=== PATIENT | female | born 1935 | race Caucasian/White ===

== ENCOUNTER 2019-10-15 18:55 | Inpatient (IN) | payer MEDICARE, OTHER, SELFPAY ==
--- NOTE | 2019-10-15 19:37 | XR_ITS ---
WS: [id number] Portable AP upright chest, 10/15/2019 Clinical Data: COVID Comparison: Portable chest, 05/11/2018. Findings: No nodules, masses or effusions are seen. The heart is enlarged. Patchy opacities extend to the periphery of the left lung involving the lingula and left lower lobe. There is a patchy density at the periphery of the right lower lobe. A left internal jugular venous Port-A-Cath ends in the supe rior vena cava. The pulmonary vascularity is not increased. No pneumothorax is seen. Right diaphragm is elevated. There is a clip in the right upper quadrant from a cholecystectomy. XR/XR chest 1V portable [id number] Impression: 1. Patchy opacities in lingula and left lower lobe consistent with pneumonia. 2. Patchy peripheral opacity in right lower lobe which could also represent pne umonia. 3. Cardiomegaly.
[2019-10-15] MEDS: enoxaparin 80 mg/0.8 mL Syringe SUBCUT (20:00)
--- NOTE | 2019-10-15 20:15 | ED_ITS ---
HPI - SOB/Dyspnea General: Chief Complaint: Shortness of Breath/Dyspnea Stated Complaint: SOB Time Seen by Provider: 10/15/19 19:24 History of Present Illness: HPI Narrative: This patient is an 84-year-old female who comes in today with shortness of breath. She has a history of lung cancer and had part of her right lung removed. She was then found to have mets to her liver and has been undergoing chemotherapy for that. Her last chemo treatment was about 3 weeks ago in [place]. Her daughter, with whom she lives tested positive for COVID on October 01. The patient was also having symptoms at that time but did not want a get tested. She said she has been feeling pretty bad since then but only developed the shortness of breath in the past several days. Today she said she just could not breathe at all and so finally let her daughter bring her in. She also has a history of myasthenia gravis. She denies vomiting or diarrhea. She has been having fevers and cough. MD elicited complaint: shortness of breath and cough Pertinent past history: other (Lung cancer with liver mets, status post lobectomy, myasthenia gravis) Onset (ago): week(s) (2 or 3 weeks ago, worsening in the past 3 days) Timing: progressively worsening Severity: severe Exacerbating factors: nothing, exertion, movement, coughing, talking and deep breaths Relieving factors: oxygen and rest Associated symptoms: Reports cough, fever(s) and myalgias; Deny abdominal pain, chest pain, nausea or vomiting Treatment prior to arrival: none Review of Systems General: Reports: 10 or more systems reviewed and unremarkable except in HPI and below Const: Reports: fever(s) Eyes: Denies: change in vision ENMT: Denies: odynophagia Card: Denies: chest pain or swelling of feet/ankles Resp: Reports: dyspnea and non-productive cough; Denies: productive cough GI: Denies: abdominal pain, nausea or vomiting : Denies: flank pain or difficulty voiding Musc: Denies: neck pain or back pain Skin/Breast: Denies: rash Neuro: Denies: headache(s), numbness in extremities or weakness in extremities Sudeep/Lymph: Denies: easy bruising or easy bleeding PFS ED PFSH: Medical History (Updated 10/15/19 @ 23:49 by Caryn Leonard MD) Anxiety Chronic kidney disease, stage II (mild) DVT (deep venous thrombosis) From description this is upper extremity or subclavian. 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 Myasthenia gravis Surgical History (Updated 10/15/19 @ 23:29 by Andrzej Vidales MD) History of pneumonectomy Partial, on right Hx of cholecystectomy Family History (Updated 10/15/19 @ 23:29 by Andrzej Vidales MD) Other Cancer Social History (Updated 10/15/19 @ 23:30 by Andrzej Vidales MD) Smoking and tobacco status: never smoked Alcohol intake: never Physical Exam Const: COMMON NORMALS: no acute distress, patient oriented x3, no limitations and alert GENERAL APPEARANCE: cooperative and comfortable OTHER: Alopecia HENMT: HEAD & SCALP: normal to inspection FACE & SINUS: normal facial exam Eye: GENERAL EYE: appearance normal, both eyes and all related structures Neck/C-Spine: COMMON NORMALS: supple, no meningeal signs and no JVD Chest: COMMONS NORMALS: normal inspection of the chest Resp: EFFORT & INSPECTION: Yes tachypneic, Yes labored and Yes uses accessory muscles AUSCULTATION: rhonchi and wheezes Cardio: COMMON NORMALS: no JVD, regular rate, regular rhythm and No murmurs present (Cardio) RATE: regular rate RHYTHM: regular rhythm GI: COMMON NORMALS: Normal to inspection, nondistended, normoactive bowel sounds present, Soft to palpation and non-tender INSPECTION: Yes normal to inspection AUSCULTATION: Yes normoactive bowel sounds PALPATION: Yes Soft to palpation Back/Pelvis: COMMON NORMALS: thoracic and lumbar spine normal to inspection Extremity: COMMON NORMALS: normal to inspection Neuro: COMMON NORMALS: patient oriented x3, moves all extremities, no focal motor deficits and no sensory deficits noted SENSORIUM/ORIENTATION: Yes alert MENINGEAL SIGNS: Yes no meningeal signs Psych: COMMON NORMALS: mental status grossly normal, cooperative and normal affect Skin: COMMON NORMALS: no rashes or lesions noted and turgor normal GENERAL SKIN EXAM: no rashes or lesions noted and turgor normal Course ED course: Patient with adequate saturations on 2 L of nasal cannula oxygen. Chest x-ray concerning for pneumonia and she was given Rocephin. I did not give Zithromax due to her history of myasthenia gravis. She was given a dose of Aleja enox prophylactically. She was not given Decadron, again due to the myasthenia gravis history. Her COVID test came back negative although her symptoms are definitely consistent with COVID and her family members in the same household have been positive for COVID. Her daughter tells me that she is supposed to be on Eliquis due to a clot in her neck but has been off of it for 2 weeks due to problems getting the prescription filled. Her d-dimer was markedly elevated and a CT of the chest was done. This did show a PE and also showed changes consistent with COVID. She will be admitted for further management of her shortness of breath. She will remain on COVID precautions until further testing is resulted. Vital Signs: Vital signs: Vital Signs Pulse Rate 77 10/15/19 22:32 Respiratory Rate 24 H 10/15/19 22:32 Blood Pressure 129/75 10/15/19 22:32 Pulse Oximetry 99 10/15/19 22:32 MDM - SOB/Dyspnea Lab Data: Labs: Lab Results 10/15/19 10/15/19 10/15/19 Range/Units 20:26 20:26 20:26 WBC 4.0 (4.0-10.0) 10^3/ uL RBC 2.51 L (4.1-5.3) 10^6/u L Hgb 8.5 L (11.5-15.3) g/dL Hct 25.4 L (37.0-47.0) % MCV 101.2 H (81-99) fL MCH 33.9 (28.0-34.0) pg MCHC 33.5 (30.0-36.0) g/dL RDW 14.7 (12.1-15.1) % Plt Count 316 (130-400) 10^3/c mm MPV 9.8 (7.4-10.4) fL Neut % (Auto) 72.2 % Lymph % (Auto) 9.5 % [place] % (Auto) 16.5 % Eos % (Auto) 0.0 % Baso % (Auto) 0.3 % Neut # (Auto) 2.88 (1.8-7.7) 10^3/u L Lymph # (Auto) 0.4 L (0.8-4.8) 10^3/u L [place] # (Auto) 0.7 (0.2-0.9) 10^3/u L Eos # (Auto) 0.0 (0.0-0.8) 10^3/u L Baso # (Auto) 0.0 (0.0-0.1) 10^3/u L Nucleated RBC % (a uto) 0 % Nucleated RBCs # 0.0 /100WBC PT 14.30 (12.1-14.9) SECO NDS INR 1.08 (0.8-1.2) APTT 30.2 (23.9-36.7) SECO NDS Fibrinogen 524 H (174-498) mg/dL D-Dimer 2.52 H (0-0.59) ug/mIFE U Sodium 137 (136-145) mmol/L Potassium 3.0 L (3.5-5.1) mmol/L Chloride 98 (98-107) mmol/L Carbon Dioxide 26 (22-29) mmol/L Anion Gap 16.0 (5-19) BUN 22 (8-23) mg/dL Creatinine 1.1 H (0.5-0.9) mg/dL GFR Calculation Not Reportable Glucose 127 H (65-115) mg/dL Calculated Osmolal ity 282 L (285-295) mOsm/k g Lactic Acid (0.5-2.2) mmol/L Calcium 8.2 L (8.5-10.5) mg/dL Total Bilirubin 0.7 (0.15-1.2) mg/dL AST 26 (0-32) U/L ALT 31 (0-33) U/L Alkaline Phosphata se 88 (35-105) IU/L Troponin T Gen 5 n g/L Troponin T Baselin e (0-10) ng/L Troponin T 120 Min [place] (0-10) ng/L Delta Troponin T (0-10) ABS# C-Reactive Protein 110.4 H (0.0-4.9) mg/L Total Protein 6.1 L (6.6-8.7) g/dL Albumin 3.7 (3.5-5.2) g/dL Globulin 2.4 (1.3-4.6) g/dL Procalcitonin 0.21 (0-0.5) ng/mL SARS-CoV-2 Ag (Rap id) (Negative) 10/15/19 10/15/19 10/15/19 Range/Units 20:26 20:26 20:26 WBC (4.0-10.0) 10^3/ uL RBC (4.1-5.3) 10^6/u L Hgb (11.5-15.3) g/dL Hct (37.0-47.0) % MCV (81-99) fL MCH (28.0-34.0) pg MCHC (30.0-36.0) g/dL RDW (12.1-15.1) % Plt Count (130-400) 10^3/c mm MPV (7.4-10.4) fL Neut % (Auto) % Lymph % (Auto) % [place] % (Auto) % Eos % (Auto) % Baso % (Auto) % Neut # (Auto) (1.8-7.7) 10^3/u L Lymph # (Auto) (0.8-4.8) 10^3/u L [place] # (Auto) (0.2-0.9) 10^3/u L Eos # (Auto) (0.0-0.8) 10^3/u L Baso # (Auto) (0.0-0.1) 10^3/u L Nucleated RBC % (a uto) % Nucleated RBCs # /100WBC PT (12.1-14.9) SECO NDS INR (0.8-1.2) APTT (23.9-36.7) SECO NDS Fibrinogen (174-498) mg/dL D-Dimer (0-0.59) ug/mIFE U Sodium (136-145) mmol/L Potassium (3.5-5.1) mmol/L Chloride (98-107) mmol/L Carbon Dioxide (22-29) mmol/L Anion Gap (5-19) BUN (8-23) mg/dL Creatinine (0.5-0.9) mg/dL GFR Calculation Glucose (65-115) mg/dL Calculated Osmolal ity (285-295) mOsm/k g Lactic Acid 1.3 (0.5-2.2) mmol/L Calcium (8.5-10.5) mg/dL Total Bilirubin (0.15-1.2) mg/dL AST (0-32) U/L ALT (0-33) U/L Alkaline Phosphata se (35-105) IU/L Troponin T Gen 5 n g/L Cancelled Troponin T Baselin e (0-10) ng/L Troponin T 120 Min [place] (0-10) ng/L Delta Troponin T (0-10) ABS# C-Reactive Protein (0.0-4.9) mg/L Total Protein (6.6-8.7) g/dL Albumin (3.5-5.2) g/dL Globulin (1.3-4.6) g/dL Procalcitonin (0-0.5) ng/mL SARS-CoV-2 Ag (Rap id) Negative (Negative) 10/15/19 10/15/19 Range/Units 20:26 23:10 WBC (4.0-10.0) 10^3/ uL RBC (4.1-5.3) 10^6/u L Hgb (11.5-15.3) g/dL Hct (37.0-47.0) % MCV (81-99) fL MCH (28.0-34.0) pg MCHC (30.0-36.0) g/dL RDW (12.1-15.1) % Plt Count (130-400) 10^3/c mm MPV (7.4-10.4) fL Neut % (Auto) % Lymph % (Auto) % [place] % (Auto) % Eos % (Auto) % Baso % (Auto) % Neut # (Auto) (1.8-7.7) 10^3/u L Lymph # (Auto) (0.8-4.8) 10^3/u L [place] # (Auto) (0.2-0.9) 10^3/u L Eos # (Auto) (0.0-0.8) 10^3/u L Baso # (Auto) (0.0-0.1) 10^3/u L Nucleated RBC % (a uto) % Nucleated RBCs # /100WBC PT (12.1-14.9) SECO NDS INR (0.8-1.2) APTT (23.9-36.7) SECO NDS Fibrinogen (174-498) mg/dL D-Dimer (0-0.59) ug/mIFE U Sodium (136-145) mmol/L Potassium (3.5-5.1) mmol/L Chloride (98-107) mmol/L Carbon Dioxide (22-29) mmol/L Anion Gap (5-19) BUN (8-23) mg/dL Creatinine (0.5-0.9) mg/dL GFR Calculation Glucose (65-115) mg/dL Calculated Osmolal ity (285-295) mOsm/k g Lactic Acid (0.5-2.2) mmol/L Calcium (8.5-10.5) mg/dL Total Bilirubin (0.15-1.2) mg/dL AST (0-32) U/L ALT (0-33) U/L Alkaline Phosphata se (35-105) IU/L Troponin T Gen 5 n g/L Troponin T Baselin e 31 H (0-10) ng/L Troponin T 120 Min [place] 30.08 H (0-10) ng/L Delta Troponin T -0.92 L (0-10) ABS# C-Reactive Protein (0.0-4.9) mg/L Total Protein (6.6-8.7) g/dL Albumin (3.5-5.2) g/dL Globulin (1.3-4.6) g/dL Procalcitonin (0-0.5) ng/mL SARS-CoV-2 Ag (Rap id) (Negative) Discharge Plan Discharge Patient Disposition: Admitted As Inpatient Clinical Impression: Acute dyspnea, COVID-19 virus test result unknown, Myasthenia gravis Pulmonary embolism Qualifiers: Pulmonary embolism type: unspecified Chronicity: unspecified Acute cor pulmonale presence: unspecified Qualified Code(s): I26.99 - Other pulmonary embolism without acute cor pulmonale Pneumonia Qualifiers: Pneumonia type: due to unspecified organism Laterality: unspecified laterality Lung location: unspecified part of lung Qualified Code(s): J18.9 - Pneumonia, unspecified organism Metastatic cancer Qualifiers: Area of secondary neoplastic involvement: unspecified site Qualified Code(s): C79.9 - Secondary malignant neoplasm of unspecified site Condition: Stable Referrals: Montserrat Vidales MD [Primary Care Provider] - Coding Level of Care Code ED Stamping Bench Die Maker for Chg Fwd Exam Comprehensive
[2019-10-15 20:38] LABS: Basophils % 0.3 %; Hematocrit 25.4 % (37.0-47.0); Hemoglobin 8.5 g/dL (11.5-15.3); Lymphocytes # 0.4 10^3/uL (0.8-4.8); Lymphocytes % 9.5 %; Mean Corpuscular HGB Conc 33.5 g/dL (30.0-36.0); Mean Corpuscular Hemoglobin 33.9 pg (28.0-34.0); Mean Corpuscular Volume 101.2 fL (81-99); Mean Platelet Volume 9.8 fL (7.4-10.4); Monocytes # 0.7 10^3/uL (0.2-0.9); Monocytes % 16.5 %; Neutrophils # 2.88 10^3/uL (1.8-7.7); Neutrophils % 72.2 %; Nucleated Red Blood Cells % 0 %; Platelet Count 316 10^3/cmm (130-400); Red Blood Count 2.51 10^6/uL (4.1-5.3); Red Cell Distribution Width 14.7 % (12.1-15.1)
[2019-10-15 21:02] LABS: INR 1.08 (0.8-1.2)
[2019-10-15 21:03] LABS: Fibrinogen 524 mg/dL (174-498); Partial Thromboplastin Time 30.2 SECONDS (23.9-36.7)
[2019-10-15 21:04] LABS: Lactic Sepsis W/Reflex 1.3 mmol/L (0.5-2.2)
[2019-10-15 21:06] LABS: D Dimer 2.52 ug/mIFEU (0-0.59)
[2019-10-15 21:10] LABS: SARS Covid-2 Antigen Negative (Negative)
[2019-10-15 21:15] LABS: Procalcitonin 0.21 ng/mL (0-0.5)
[2019-10-15 21:26] LABS: Alanine Aminotransferase 31 U/L (0-33); Albumin Level 3.7 g/dL (3.5-5.2); Alkaline Phosphatase 88 IU/L (35-105); Aspartate Amino Transferase 26 U/L (0-32); Blood Urea Nitrogen 22 mg/dL (8-23); C Reactive Protein 110.4 mg/L (0.0-4.9); Calcium 8.2 mg/dL (8.5-10.5); Carbon Dioxide 26 mmol/L (22-29); Chloride 98 mmol/L (98-107); Globulin 2.4 g/dL (1.3-4.6); Glucose 127 mg/dL (65-115); Osmolality Calculated 282 mOsm/kg (285-295); Sodium 137 mmol/L (136-145); Total Bilirubin 0.7 mg/dL (0.15-1.2); Total Protein 6.1 g/dL (6.6-8.7)
--- NOTE | 2019-10-15 22:09 | CTR_ITS ---
PROCEDURE INFORMATION: Exam: CT Angiography Chest With Contrast Exam date and time: 10/15/2019 10:19 PM Age: 84 years old Clinical indication: Shortness of breath; Prior surgery; Surgery type: Gb, lung, port; Additional info: SOB TECHNIQUE: Imaging protocol: Computed tomographic angiography of the chest with intravenous contrast. 3D rendering (Not supervised by radiologist): MIP and/or 3D reconstructed images were created by the technologist. Radiation optimization: All CT scans at this facility use at least one of these dose optimization techniques: automated exposure control; mA and/or kV adjustment per patient size (includes targeted exams where dose is matched to clinical indication); or iterative reconstruction. Contrast material: VISI 320; Contrast volume: 72 ml; Contrast route: INTRAVENOUS (IV); COMPARISON: CT chest w con* [id number] 05/11/2018 12:33 PM RADIATION DOSE METRICS: Total DLP (mGy-cm): 561.55 FINDINGS: Tubes, catheters and devices: There is an infusion port catheter with its tip in the superior vena cava. Pulmonary arteries: There is an embolus in the distal pulmonary artery to the right lower lobe extending partly into the lateral basal and medial basal segments. Aorta: There is no evidence of aortic aneurysm or dissection. Lungs: Patient is post right upper lobectomy. Pulmonary mass seen on 05/11/2018 is no longer identified. There are calcified granulomas in both lungs. There are peripheral ground-glass opacities, in the periphery of the right lower lobe, more extensively in the left lower lobe and lingula and to a lesser extent in the periphery of the left upper lobe. No infiltrate is seen in the right middle lobe. Pleural space: Unremarkable. No pneumothorax. No pleural effusion. Heart: There is moderate atherosclerotic calcification of the coronary arteries. There is no evidence for right heart strain. Lymph nodes: No adenopathy is identified. There are calcified subcarinal and hilar lymph nodes in keeping with old granulomatous disease. Kidneys and ureters: Simple cysts are seen in the upper poles of both kidneys. Bones/joints: There is old healed fracture of the posterior right 5th rib, likely related to prior surgery. Soft tissues: Unremarkable. CT/CT angio chest PE protcl [id number] IMPRESSION: 1. Positive for pulmonary embolism. 2. Commonly reported imaging features of COVID-19 pneumonia are present. Other processes such as influenza pneumonia and organizing pneumonia, as can be seen with drug toxicity and connective tissue disease, can cause a similar imaging pattern. 3. Right upper lobectomy with resection of tumor compared with 05/11/2018 without evidence for metastasis or recurrence. COMMENTS: 1. Consistent with the [employer]'s Incidental Findings Committee white paper (J Am Jett Radiol 2018): Any incidental renal lesion less than 1.0 cm or classified as too small to characterize, or any incidental cystic renal lesion characterized as simple-appearing, is likely benign. No follow-up imaging is recommended for these lesions per consensus recommendations based on imaging criteria. 2. THIS REPORT CONTAINS FINDINGS THAT MAY BE CRITICAL TO PATIENT CARE. The findings were verbally communicated via telephone conference with Caryn Leonard at 12:07 AM CDT on 10/16/2019. The findings were acknowledged and understood. REFERENCES: Mejia Whitten, et al., Radiological Society of [place] Expert Consensus Statement on Reporting Chest CT Findings Related to COVID-19. Endorsed by the Society of Thoracic Radiology, the [place] [employer], and RSNA. Published May 06, 2019. Radiation Dose CTDIVOL = (mGy): DLP = 561.55 (mGy-cm)
--- NOTE | 2019-10-15 22:10 | ECG_ITS ---
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 Measurements Intervals [place] Rate: 78 P: 66 ME: 192 QRS: -16 QRSD: 86 T: 29 QT: 361 QTc: 411 Interpretive Statements SINUS RHYTHM MODERATE VOLTAGE CRITERIA FOR LVH, CONSIDER NORMAL VARIANT [MEETS CRITERIA IN ONE OF: R(aVL), S(V1), R(V5), R(V5/V6)+S(V1)] INFERIOR MYOCARDIAL INFARCTION , PROBABLY OLD [40+ ms Q WAVE AND/OR ST/T ABNORMALITY IN II/aVF] INTERPRETATION BASED ON A DEFAULT AGE OF 40 YEARS Compared to ECG 05/11/2018 10:30:38 No significant changes Electronically Signed On 10-16-2019 21:13:17 CDT by Radha Morgan M.D. [email or web address].[email or web address]/store/[id number]
[2019-10-15 22:19] LABS: Troponin(5th) Baseline 31 ng/L (0-10)
[2019-10-15 22:32] VITALS: BP 129/75; PULSE 77; RESP 24; O2SAT 99
--- NOTE | 2019-10-15 23:22 | P.HP_ITS ---
Providers/Chief Complaint Primary Care Provider: Montserrat Vidales MD Chief Complaint: sob covid+ History of Present Illness Rebecca Vega is a 84 year old female that presents to the emergency department with increasing weakness, shortness of breath, cough which is productive of sputum, and low-grade temperatures. Apparently the symptoms have been worsening over the last 4 to 5 days. She also had symptoms around October 01. At that time her daughter who lives in the household tested positive for COVID. Patient herself and refused any testing. She had improved initially, until the last 4 to 5 days. She has had some nausea. She has had no diarrhea or vomiting. She has underlying lung cancer with metastasis to the liver. Her last chemotherapy was on September 13. Her oncologist is Dr. Orta at [facility]. Of note, she is supposed to be on Eliquis according to family as she has a DVT. The description sounds subclavian. They have not yet filled the Eliquis. Review of Systems General: Reports: 10 or more systems reviewed and unremarkable except in HPI and below Const: Reports: fever(s) and malaise Eyes: Denies: change in vision ENMT: Denies: throat pain Card: Denies: chest pain Resp: Reports: dyspnea and productive cough GI: Reports: nausea; Denies: abdominal pain : Denies: flank pain Musc: Denies: neck pain Skin/Breast: Denies: rash Neuro: Denies: headache(s) Psych: Reports: anxiety Endo: Denies: polyuria Sudeep/Lymph: Denies: easy bruising All/Imm: Denies: urticaria Medications/Allergies Home Medications Medication Instructions Recorded Confirmed Last Taken Type alprazolam 0.25 mg PO BID 10/15/19 10/15/19 10/15/19 History citalopram 10 mg PO DAILY 10/15/19 10/15/19 10/15/19 History hydrochlorothiazide 25 mg PO BEDTIME 10/15/19 10/15/19 10/14/19 History hydrocodone-acetaminophen 1 tab PO Q4H PRN 10/15/19 10/15/19 10/15/19 History losartan 100 mg PO DAILY 10/15/19 10/15/19 10/15/19 History pantoprazole 40 mg PO BID 10/15/19 10/15/19 10/15/19 History pramipexole 0.25 mg PO BEDTIME 10/15/19 10/15/19 10/14/19 History pyridostigmine bromide See Rx Instructions .ROUTE .COMPLEX 10/15/19 10/15/19 Unknown History Allergies Allergy/AdvReac Type Severity Reaction Status Date / Time Androgenic Anabolic Steroid Allergy Unknown Verified 10/15/19 19:44 hydroxychloroquine Allergy Unknown Verified 10/15/19 19:44 magnesium Allergy Unknown Verified 10/15/19 19:43 metoclopramide [From Reglan] Allergy Unknown Verified 10/15/19 19:44 Penicillins Allergy Unknown Verified 10/15/19 19:44 PFSH Acute PFSH: Medical History (Updated 10/16/19 @ 01:35 by Andrzej Vidales MD) Anxiety Chronic kidney disease, stage II (mild) DVT (deep venous thrombosis) From description this is upper extremity or subclavian. 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 Myasthenia gravis Surgical History (Updated 10/15/19 @ 23:29 by Andrzej Vidales MD) History of pneumonectomy Partial, on right Hx of cholecystectomy Family History (Updated 10/15/19 @ 23:29 by Andrzej Vidales MD) Other Cancer Social History (Updated 10/15/19 @ 23:30 by Andrzej Vidales MD) Smoking and tobacco status: never smoked Alcohol intake: never Vitals/I&O/Wt Last Vital Signs Pulse 77 10/15/19 22:32 Resp 24 H 10/15/19 22:32 BP 129/75 10/15/19 22:32 Pulse Ox 99 10/15/19 22:32 Weight last 48 hrs Weight 68.039 kg Physical Exam Narrative: EXAM NARRATIVE: General exam is a white female, no apparent distress HEENT: Pupils equally round. Oropharynx clear. Neck supple no lymphadenopathy or thyromegaly Cardiovascular regular rate and rhythm without murmur, no S3 or S4. Port noted left chest Lungs clear no wheezing or crackles. Diminished breath sounds are noted bila terally Abdomen is soft nontender with positive bowel sounds. No obvious organomegaly deferred Extremities no cyanosis clubbing or edema, cap refill brisk Skin no rash Neuro no focal deficits Data : 10/15/19 20:26 10/15/19 20:26 Micro: Microbiology 10/15/19 20:26 Blood Culture - Preliminary Blood SPECIMEN COLLECTED 10/15/19 20:26 Blood Culture - Preliminary Blood SPECIMEN COLLECTED Other data: EKG demonstrates normal sinus rhythm, left axis deviation, Q waves i nferiorly Chest x-ray demonstrates port, thickening right lung possible postsurgical, pneumonia left D-dimer elevated at 2.52 Fibrinogen elevated at 524 Troponin 31 CRP 110 Procalcitonin negative at 0.2 Rapid COVID negative LFTs normal Lactic acid 1.3 CTA is now back and positive for pulmonary embolism, right upper lobe ectomy, patchy bibasilar and bilateral infiltrates A&P Assessment and plan (1) Pulmonary embolism: Initiate Lovenox every 12 hours, full dose Check echocardiogram Transition to Eliquis when appropriate Status: Acute Qualifiers: Acute cor pulmonale presence: unspecified Chronicity: unspecified Pulmonary embolism type: unspecified Qualified Code(s): I26.99 - Other pulmonary embolism without acute cor pulmonale (2) Pneumonia: Initiate cefepime IV Sputum and blood culture Check MRSA PCR Status: Acute Qualifiers: Laterality: unspecified laterality Lung location: unspecified part of lung Pneumonia type: due to unspecified organism Qualified Code(s): J18.9 - Pneumonia, unspecified organism (3) COVID-19 virus test result unknown: Significant history of exposure to COVID and perhaps past COVID infection Check PTC COVID test as rapid was negative Continue isolation Status: Acute (4) Anemia: Stool Hemoccult May be related to chemotherapy Anemia panel Status: Acute (5) Hypokalemia: Amended in ER IV Status: Acute (6) Hypomagnesemia: 2 g IV. Recheck in the morning Status: Acute Additional A&P Information History of lung cancer with metastasis to the liver. Last chemotherapy September 13 Anxiety. Continue home medications Stage II chronic kidney disease GERD. Continue Protonix Hypertension. Continue home medicines with the exception of hydrochlorothiazide History of myasthenia gravis. Holding medication currently Multiple other medical problems as outlined in past medical history Full code Lovenox for anticoagulation Attestations Medical Necessity Statement*: Will need greater than 2 midnight stay for evaluation and treatment of pneumonia Time Spent in Patient Care: Greater than 35 minutes Coding Level of Care Code Acute Veterinary X Ray Operator for Chg Fwd Diagnoses Pulmonary embolism I26.99 Acute cor pulmonale presence: unspecified Chronicity: unspecified Pulmonary embolism type: unspecified Pneumonia J18.9 Laterality: unspecified laterality Lung location: unspecified part of lung Pneumonia type: due to unspecified organism COVID-19 virus test result unknown Anemia D64.9 Hypokalemia E87.6 Hypomagnesemia E83.42
[2019-10-15] MEDS: iodixanol 320 mg/mL 100mL Btl IV (23:25)
[2019-10-15 23:41] LABS: Troponin 5 2HR 30.08 ng/L (0-10)
[2019-10-15 23:47] LABS: Troponin 5 2HR Delta -0.92 ABS# (0-10)
[2019-10-16] VITALS (11 sets, daily range): BP systolic 131–194; BP diastolic 58–86; PULSE 71–91; RESP 18–24; TEMP 36.6–37.1; O2SAT 94–98
--- NOTE | 2019-10-16 00:10 | ECG_ITS ---
[facility] Test Date: 2019-10-16 Pat Name: Rebecca Vega Department: Room: Gender: Female Charge Account Identification Clerk: : 1935 Requested By: Caryn Escalante Order Number: [id number] Carlos MD: Radha Morgan M.D. Measurements Intervals [place] Rate: 82 P: 24 OR: 195 QRS: -14 QRSD: 89 T: 13 QT: 374 QTc: 439 Interpretive Statements SINUS RHYTHM MODERATE VOLTAGE CRITERIA FOR LVH, CONSIDER NORMAL VARIANT [MEETS CRITERIA IN ONE OF: R(aVL), S(V1), R(V5), R(V5/V6)+S(V1)] Compared to ECG 10/15/2019 23:09:25 Myocardial infarct finding no longer present Electronically Signed On 10-16-2019 21:14:50 CDT by Radha Morgan M.D. [email or web address] [email or web address] [facility].[employer]/store/[id number]
[2019-10-16 00:49] LABS: Magnesium 1.4 mg/dL (1.7-2.3); Thyroid Stimulating Hormone 0.48 uIU/mL (0.27-4.20)
--- NOTE | 2019-10-16 01:02 | PC.NURSE ---
EKG done at 0100 and shown to ER doctor
[2019-10-16] MEDS: cefTRIAXone 1,000 MG in sodium chloride 0.9% (plus) 50 ML 100 MG IV (01:17)
[2019-10-16] MEDS: potassium chloride ER 10 mEq Tablet 40 MEQ PO ×2 (01:18→17:09)
--- NOTE | 2019-10-16 01:39 | USCV_ITS ---
Rebecca Vega Age: 84 Gender: F : 1935 Exam Date: 10/16/2019 06:19 Ordering Phys: Andrzej Vidales MD Technologist: Abel Zimmer Exam Location: [facility] [place] Indication: PE PE BP: 125 / 67 HR: 75 Rhythm: Sinus Technical Quality: Adequate MEASUREMENTS (Male / Female) Normal Values 2D ECHO LV Diastolic Diameter PLAX 4.4 cm 4.2 - 5.9 / 3.9 - 5.3 cm LV Systolic Diameter PLAX 3.1 cm IVS Diastolic Thickness 1.0 cm 0.6 - 1.0 / 0.6 - 0.9 cm IVS Systolic Thickness 1.3 cm LVPW Diastolic Thickness 1.0 cm 0.6 - 1.0 / 0.6 - 0.9 cm LVPW Systolic Thickness 1.1 cm LVOT Diameter 2.1 cm LV Ejection Fraction 2D Teich 55.5 % LV Ejection Fraction MOD 2C 59.6 % LV Ejection Fraction 2C AL 58.5 % LA Diameter 3.4 cm LA Width 3.7 cm LA Height 4.6 cm RA Width 3.4 cm RA Height 4.8 cm Aorta at Sinotubular Diameter 1.1 cm DOPPLER AV Peak Velocity 134.0 cm/s LVOT Peak Velocity 74.0 cm/s AV Area Cont Eq vti 1.8 cm squared AV Area Cont Eq pk 1.8 cm squared MV Area PHT 5.0 cm squared Mitral E to A Ratio 0.5 MV E' Velocity 5.0 cm/s Mitral E to MV E' Ratio 10.1 Mitral E to LV E' Lateral Ratio 10.9 Mitral E to LV E' Septal Ratio 9.3 TR Peak Velocity 136.0 cm/s TR Peak Gradient 7.4 mmHg TV Peak E Velocity 68.0 cm/s Right Atrial Pressure 3.0 mmHg Pulmonary Artery Systolic Pressu 10.4 mmHg PV Peak Velocity 104.0 cm/s FINDINGS Left Ventricle Normal left ventricular cavity size. Normal left ventricular systolic function. Left ventricular ejection fraction is estimated at 65%. Although no diagnostic regional wall motion abnormality could be undefined, this possibility cannot be completely excluded based on the study. Grade I diastolic dysfunction (abnormal relaxation filling pattern), normal to mildly elevated filling pressures. Right Ventricle Right ventricle not well visualized. Normal right ventricular size and systolic function. Right ventricular systolic pressure 10.4 mmHg. Right Atrium Right atrial pressure estimated at 3 mmHg. Left Atrium Left atrium not well visualized. Mitral Valve Structurally normal mitral valve. No mitral valve regurgitation. Aortic Valve Aortic valve not well visualized. Possible mild aortic valve stenosis, mean gradient 2.8 mmHg, AWA 1.8 cm squared. Tricuspid Valve Tricuspid valve not well visualized. Pulmonic Valve Pulmonic valve not well visualized. Pericardium No pericardial effusion. Echo free space anterior to the right ventricle likely represents a fat pad. Aorta Normal-sized aortic root. Normal-sized inferior vena cava. CONCLUSIONS 1. Normal left ventricular cavity size and systolic function. Left ventricular ejection fraction is estimated at 65%. Although no diagnostic regional wall motion abnormality could be undefined, this possibility cannot be completely excluded based on the study. 2. Normal right ventricular size and systolic function. 3. Possible mild aortic valve stenosis, mean gradient 2.8 mmHg, AWA 1.8 cm squared. 4. No prior similar studies to compare. Shahnaz Cordoba MD (Electronically Signed) Final Date: 16 October 2019 18:44 S
[2019-10-16 02:07] LABS: Add On to Lab Order(s) Added
[2019-10-16] MEDS: ondansetron 2 mg/ML SDV 2 mL 4 MG IVP ×2 (02:42→17:11)
[2019-10-16] MEDS: sodium chloride 0.9% 1,000 ML 50 ML IV ×2 (02:56→20:25)
[2019-10-16] MEDS: cefepime 2,000 MG in sodium chloride 0.9% (plus) 50 ML 100 MG IV ×2 (02:56→14:52)
[2019-10-16 03:23] LABS: Iron 20 ug/dL (37-145); Magnesium 1.7 mg/dL (1.7-2.3); Percent Saturation 11.7 % (20-50); Total Iron Binding Capacity 170 mcg/dl; Unsaturated Iron Binding 150 ug/dL (112-347)
[2019-10-16 03:24] LABS: Troponin 5 6HR 36.85 ng/L (0-10); Troponin 5 6HR Delta 5.85 ng/L (0-12)
[2019-10-16 03:44] LABS: Ferritin 1221 ng/mL (15-150)
--- NOTE | 2019-10-16 04:10 | ECG_ITS ---
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 Measurements Intervals [place] Rate: 73 P: 22 NV: 185 QRS: -6 QRSD: 86 T: 17 QT: 399 QTc: 443 Interpretive Statements SINUS RHYTHM Compared to ECG 10/16/2019 00:59:56 No significant changes Electronically Signed On 10-16-2019 21:15:00 CDT by Radha Morgan M.D. [email or web address] Biotechpatient's choice medical center of smith countyCafé Canusafulton county health centerFundamo (Proprietary)/store/OM/[id number]
[2019-10-16 06:39] LABS: Basophils % 0.4 %; Hematocrit 27.9 % (37.0-47.0); Lymphocytes # 1.3 10^3/uL (0.8-4.8); Lymphocytes % 24.5 %; Mean Corpuscular HGB Conc 32.3 g/dL (30.0-36.0); Mean Corpuscular Hemoglobin 33.6 pg (28.0-34.0); Mean Corpuscular Volume 104.1 fL (81-99); Mean Platelet Volume 10.4 fL (7.4-10.4); Monocytes # 0.8 10^3/uL (0.2-0.9); Monocytes % 15.2 %; Neutrophils # 3.03 10^3/uL (1.8-7.7); Neutrophils % 58.4 %; Nucleated Red Blood Cells % 0 %; Platelet Count 379 10^3/cmm (130-400); Red Blood Count 2.68 10^6/uL (4.1-5.3); White Blood Count 5.2 10^3/uL (4.0-10.0)
[2019-10-16 06:52] LABS: Alanine Aminotransferase 30 U/L (0-33); Albumin Level 3.7 g/dL (3.5-5.2); Alkaline Phosphatase 101 IU/L (35-105); Anion Gap 18.1 (5-19); Aspartate Amino Transferase 26 U/L (0-32); Blood Urea Nitrogen 20 mg/dL (8-23); Calcium 8.8 mg/dL (8.5-10.5); Carbon Dioxide 24 mmol/L (22-29); Chloride 98 mmol/L (98-107); Globulin 2.9 g/dL (1.3-4.6); Glucose 123 mg/dL (65-115); Osmolality Calculated 282 mOsm/kg (285-295); Potassium 3.1 mmol/L (3.5-5.1); Sodium 137 mmol/L (136-145); Total Bilirubin 0.6 mg/dL (0.15-1.2); Total Protein 6.6 g/dL (6.6-8.7)
[2019-10-16] MEDS: losartan 50 mg Tablet 100 MG PO (09:20)
[2019-10-16] MEDS: ALPRAZolam 0.25 mg Tablet PO ×2 (09:20→17:10)
[2019-10-16] MEDS: enoxaparin 80 mg/0.8 mL Syringe SUBCUT ×2 (09:20→17:11)
[2019-10-16] MEDS: citalopram 20 mg Tablet 10 MG PO (09:23)
[2019-10-16] MEDS: pantoprazole DR 40 mg Tablet PO ×2 (09:23→17:10)
--- NOTE | 2019-10-16 12:44 | PM.PN ---
Vitals/I&O/Wt Last Vital Signs Temp 97.8 F 10/16/19 08:00 Pulse 75 10/16/19 08:00 Resp 21 H 10/16/19 08:00 BP 147/71 10/16/19 09:20 Pulse Ox 97 10/16/19 08:00 10/15/19 10/16/19 10/16/19 22:59 06:59 14:59 Intake Total 100 / 100 120 / 120 Balance 100 / 100 120 / 120 Weight last 48 hrs Weight 67.84 kg Weight 68.039 kg Data : 10/16/19 02:33 10/16/19 02:33 Micro: Microbiology 10/16/19 02:52 Gram Stain - Final Sputum - Expectorated Sputum 10/16/19 02:52 Occult Blood (FIT) - Final Stool Routine Collection 10/15/19 20:26 Blood Culture - Preliminary Blood SPECIMEN COLLECTED 10/15/19 20:26 Blood Culture - Preliminary Blood SPECIMEN COLLECTED A&P Assessment and plan (1) Acute respiratory failure with hypoxia: Status: Acute (2) Pulmonary embolism: Status: Acute Qualifiers: Acute cor pulmonale presence: unspecified Chronicity: unspecified Pulmonary embolism type: unspecified Qualified Code(s): I26.99 - Other pulmonary embolism without acute cor pulmonale (3) Pneumonia: Status: Acute Qualifiers: Laterality: unspecified laterality Lung location: unspecified part of lung Pneumonia type: due to unspecified organism Qualified Code(s): J18.9 - Pneumonia, unspecified organism (4) COVID-19 virus test result unknown: Status: Acute (5) Anemia: Anemia panel suggestive of severe iron deficiency anemia. Will start patient on oral iron supplementation. Transfuse if falls below 7. Stool for occult blood positive. Will have to continue anticoagulation given pulmonary embolism. Status: Acute (6) Hypokalemia: Oral potassium supplementation with 40 mEq twice. Status: Acute (7) Hypomagnesemia: 2 g IV. Recheck in the morning Status: Acute (8) Acute kidney injury superimposed on chronic kidney disease: Status: Acute (9) Hypertension: Status: Acute Additional A&P Information Could be multifactorial. Most likely patient had COVID-19 pneumonia couple of weeks ago still has COVID-19 due to CTA images, significant exposure history with her daughter being +2 weeks ago. COVID-19 to PTC awaited. Pulmonary embolism on CTA. Cannot rule out post viral bacterial infection as well. Because of history of myasthenia gravis cannot rule out flareup as well. Check NIF study. Continue with full dose Lovenox for now. Will transition over to Eliquis. Advair, Spiriva. Incentive spirometry, flutter valve. Vitamin C, zinc. Isolation precautions. Blood cultures, sputum culture, MRSA swab already sent. Patient is already on cefepime will also add vancomycin for now. If patient remains afebrile, sputum culture comes back benign we will stop antibiotics. Program negative. We will restart myasthenia gravis medication. If NIF significant we will have to start on steroid. Acute on chronic kidney disease: Patient has history of CKD type II. Worsening most likely because of dehydration. Creatinine 1.3 today. Check urine lites, urinalysis, urine microscopy, urine eosinophils, microalbumin creatinine ratio. Continue gentle hydration with normal saline at 75 cc/h. Continue holding of losartan. Hypertension: Goal blood pressure less than 140/90 mmHg. Start patient amlodipine as stopped taking losartan and hydrochlorothiazide because of RAMON. Hydralazine 10 mg IV every 6 hours as needed for systolic blood pressure more than 160 mmHg. If of lung cancer with metastasis to the liver. Last chemotherapy September 13 Anxiety. Continue home medications GERD. Continue Protonix History of myasthenia gravis: Patient and patient's daughter states she is been taking rivastigmine half tablet every 6 hours. Will restart. Multiple other medical problems as outlined in past medical history Full code Lovenox for anticoagulation Attestations Medical Necessity Statement*: Acute hypoxia, pulmonary embolism, rule out COVID-19, acute on chronic kidney disease, myasthenia gravis Time Spent in Patient Care: Greater than 35 minutes (>than 50% of time spent in counselling and/or direct pt care on unit). 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
--- NOTE | 2019-10-16 13:53 | PC.RESP ---
PULMONARY REHAB INFORMATION SENT TO PATIENT.
[2019-10-16] MEDS: pyridostigmine 60 mg Tablet 30 MG PO ×2 (14:52→20:21)
[2019-10-16] MEDS: ferrous gluconate 324 mg Tablet PO (17:10)
[2019-10-16] MEDS: ascorbic acid 500 mg Tablet PO (17:10)
[2019-10-16] MEDS: vancomycin 750 MG in sodium chloride 0.9% 250 ML 250 MG IV (17:44)
[2019-10-16] MEDS: hyDRALAzine 20 mg/mL INJ 1 mL 10 MG IVP (17:44)
[2019-10-16] MEDS: HYDROcodone-acetaminophen 5-325 mg Tablet 1 TAB PO (18:45)
[2019-10-16 19:22] LABS: ABG PCO2 28.7 mmHg (35-45); ABG PH Result 7.45 (7.35-7.45); Alveolar-Arterial Oxygen Gradi 2.3 mmHg (5-10); Arterial Blood Gas Hematocrit 24.8 % (37-47); Base Excess ABG -3.4 mmol/L (-2.0-2.0); Blood Gas Allen Test Pos; Blood Gas LPM 2.5 %; Blood Gas Sample Site Radial, right; Blood Gas Sample Type Arterial; HGB O2 Sat 96.3 % (95-100); Ionized Calcium Level - ABG 1.1 mmol/L (1.1-1.4); Methemoglobin 1.1 % (0.4-1.5); Oxygen Device NC; Oxygen Saturation ABG 98.4; PO2 ABG 95.4 mmHg (80.0-100.0); Potassium Level - ABG 3.1 mmol/L (3.5-5.0); Total Hemoglobin 8.1 g/dL (12-16)
[2019-10-16 19:38] LABS: Bilirubin Urine Neg (NEGATIVE); Blood Urine Neg (Negative); Glucose Urine UA Norm (Normal); Ketones Urine Negative (Negative); Leukocyte Esterase Urine Negative (Negative); Nitrate Urine Negative (Negative); Protein Urine Neg (Negative); Sulfosalicylic Acid Urine Negative (Negative); Urine Appearance Clear (CLEAR); Urine Color Straw (Yellow); Urobilinogen Urine Neg (Negative); pH Urine 8 (5-7)
[2019-10-16 19:39] LABS: Bacteria Urine TRACE
[2019-10-16 19:40] LABS: Add Urine Culture? No
[2019-10-16 19:54] LABS: Urine Creatinine 4 mg/dL (28-217)
[2019-10-16] MEDS: benzonatate 100 mg Capsule PO (20:18)
[2019-10-16] MEDS: pramipexole 0.25 mg Tablet PO (20:18)
[2019-10-16] MEDS: dexamethasone 10 mg/mL INJ 6 MG IVP (20:18)
[2019-10-16 20:34] LABS: Eosinophil Urine No Eosinophils Seen; Urine Eosinophil Count 0 (0-0)
[2019-10-16 21:18] LABS: Creatinine Urine, Random 4 mg/dL (28-217); Microalbum Creatinine Ratio Ur 250 mg/dL (0-20); Microalbumin Random Urine 1 ug/dL (0-20)
[2019-10-17] VITALS (55 sets, daily range): BP systolic 124–168; BP diastolic 54–117; PULSE 77–160; RESP 17–38; TEMP 36.3–37; O2SAT 92–99
[2019-10-17] MEDS: cefepime 2,000 MG in sodium chloride 0.9% (plus) 50 ML 100 MG IV ×2 (01:40→15:28)
[2019-10-17 05:55] LABS: Hematocrit 23.3 % (37.0-47.0); Hemoglobin 7.5 g/dL (11.5-15.3); Lymphocytes # 0.1 10^3/uL (0.8-4.8); Lymphocytes % 5.3 %; Mean Corpuscular HGB Conc 32.2 g/dL (30.0-36.0); Mean Corpuscular Hemoglobin 33.8 pg (28.0-34.0); Mean Platelet Volume 9.1 fL (7.4-10.4); Monocytes # 0.1 10^3/uL (0.2-0.9); Monocytes % 3.3 %; Neutrophils # 1.87 10^3/uL (1.8-7.7); Neutrophils % 89.5 %; Nucleated Red Blood Cells % 0 %; Platelet Count 282 10^3/cmm (130-400); Red Blood Count 2.22 10^6/uL (4.1-5.3); Red Cell Distribution Width 14.7 % (12.1-15.1); White Blood Count 2.1 10^3/uL (4.0-10.0)
[2019-10-17 06:10] LABS: Fibrinogen 537 mg/dL (174-498)
[2019-10-17 06:12] LABS: Anion Gap 15.9 (5-19); Blood Urea Nitrogen 19 mg/dL (8-23); Calcium 7.8 mg/dL (8.5-10.5); Carbon Dioxide 20 mmol/L (22-29); Chloride 107 mmol/L (98-107); Glucose 168 mg/dL (65-115); Magnesium 1.4 mg/dL (1.7-2.3); Osmolality Calculated 288 mOsm/kg (285-295); Potassium 3.9 mmol/L (3.5-5.1); Sodium 139 mmol/L (136-145)
[2019-10-17 06:14] LABS: C Reactive Protein 70.4 mg/L (0.0-4.9); Creatine Phosphokinase 56 U/L (26-192)
[2019-10-17 06:24] LABS: NT Pro B Type Natriuretic Pept 1361 pg/mL (0-450)
[2019-10-17 06:35] LABS: Ferritin 971 ng/mL (15-150); Lactate Dehydrogenase 283 U/L (135-214)
[2019-10-17] MEDS: enoxaparin 80 mg/0.8 mL Syringe SUBCUT (09:00)
[2019-10-17] MEDS: ferrous gluconate 324 mg Tablet PO ×2 (09:00→18:20)
[2019-10-17] MEDS: benzonatate 100 mg Capsule PO ×3 (09:01→20:38)
[2019-10-17] MEDS: amlodipine 10 mg Tablet PO (09:01)
[2019-10-17] MEDS: ascorbic acid 500 mg Tablet PO ×2 (09:01→18:20)
[2019-10-17] MEDS: ALPRAZolam 0.25 mg Tablet PO ×4 (09:01→21:58)
[2019-10-17] MEDS: dexamethasone 10 mg/mL INJ 6 MG IVP (09:02)
[2019-10-17] MEDS: pantoprazole DR 40 mg Tablet PO (09:02)
[2019-10-17] MEDS: zinc gluconate 50 mg Tablet PO (09:03)
[2019-10-17] MEDS: citalopram 20 mg Tablet 10 MG PO (09:03)
--- NOTE | 2019-10-17 09:54 | P.PN_ITS ---
Subjective Subjective: Interval history: No acute events overnight. Denies headache, N/V. C/o decrease appetite, feeling weak. No more cough or SOB. Requiring 2 lt O2 supplementation. Labs noted. Vitals/I&O/Wt Last Vital Signs Temp 97.5 F L 10/17/19 05:22 Pulse 77 10/17/19 09:42 Resp 20 H 10/17/19 09:42 BP 143/75 10/17/19 05:22 Pulse Ox 97 10/17/19 09:42 10/16/19 10/17/19 10/17/19 22:59 06:59 14:59 Intake Total 1294.167 / 1414.167 290 / 1704.167 Output Total 150 / 150 150 / 300 Balance 1144.167 / 1264.167 140 / 1404.167 Weight last 48 hrs Weight 70.352 kg Weight 67.84 kg Weight 68.039 kg Physical Exam Narrative: EXAM NARRATIVE: General: No acute distress, AO x3 HEENT: PERRLA, pupils bilaterally equal and reactive Chest: Normal vesicular breath sounds, no added sounds, equal good air entry bilaterally CVS: S1-S2 regular, no murmurs, no tachycardia, no gallops, no rubs Abdomen: Soft, nontender, no organomegaly, bowel sounds present Neuro: No focal deficits, no facial deformity, AO x3, power 5/5 in all limbs Data : 10/17/19 05:47 10/17/19 05:47 Micro: Microbiology 10/15/19 20:26 Blood Culture - Preliminary Blood NEGATIVE TO DATE 10/15/19 20:26 Blood Culture - Preliminary Blood NEGATIVE TO DATE 10/16/19 06:15 MRSA Culture - Final Nose 10/16/19 02:52 Gram Stain - Final Sputum - Expectorated Sputum 10/16/19 02:52 Occult Blood (FIT) - Final Stool Routine Collection A&P Assessment and plan (1) Acute respiratory failure with hypoxia: Status: Acute (2) Pulmonary embolism: Status: Acute Qualifiers: Acute cor pulmonale presence: unspecified Chronicity: unspecified Pulmonary embolism type: unspecified Qualified Code(s): I26.99 - Other pulmonary embolism without acute cor pulmonale (3) Pneumonia: Status: Acute Qualifiers: Laterality: unspecified laterality Lung location: unspecified part of lung Pneumonia type: due to unspecified organism Qualified Code(s): J18.9 - Pn eumonia, unspecified organism (4) COVID-19 virus test result unknown: Status: Acute (5) Anemia: Anemia panel suggestive of severe iron deficiency anemia. Will start patient on oral iron supplementation. Transfuse if falls below 7. Stool for occult blood positive. Will have to continue anticoagulation given pulmonary embolism. Status: Acute (6) Hypokalemia: Oral potassium supplementation with 40 mEq twice. Status: Acute (7) Hypomagnesemia: 2 g IV. Recheck in the morning Status: Acute (8) Acute kidney injury superimposed on chronic kidney disease: Status: Acute (9) Hypertension: Status: Acute Additional A&P Information Could be multifactorial. Most likely patient had COVID-19 pneumonia couple of weeks ago vs still has COVID-19 due to CTA images, significant exposure history with her daughter being +2 weeks ago. COVID-19 to PTC awaited. Pulmonary embolism on CTA. Cannot rule out post viral bacterial infection as well. Because of history of myasthenia gravis cannot rule out flareup as well. Check NIF study. Continue with full dose Lovenox for now. Will transition over to Eliquis. Advair, Spiriva. Incentive spirometry, flutter valve. Vitamin C, zinc. Isolation precautions. Blood cultures, sputum culture, prelim results appreciated. MRSA negative. We will de-escalate antibiotics to ceftriaxone. . Procal negative. NIF study has been stable. Continue with treatment for myasthenia gravis. Anemia: Acute drop in hemoglobin from 9-7.5. Iron panel s/o ZOHAIB. Can not r/o GI bleed. Check stool for occult blood. 2 unit PRBC transfusion, Oral iron supplementation. Protonix drip. Surgery consult. C/d/w Dr. Bianchi. N.p.o. for now. Care discussed with patient's daughter Me. Patterson. Discussed that given acute drop in Hb from 9 to 7.5 its is very possible that patient is having GI bleed which is making things complicated as patient needs AC for PE which is atleast submassive. Discussed if further AC she can have more bleed and can be life threatening while no AC can cause more PE as she is fairly prothrombotic due to cancer and most likely Destini COVID status. Decision for now is to with hold AC until stool studies come back. Also discussed patient will need EGD and colonoscopy that will make patient high risk as well given multiple co-morbidities. Daughter states if needed she is ok with patient getting Scopes. Acute on chronic kidney disease: Patient has history of CKD type II. Improved today. Back to baseline. Continue with gentle hydration at 50 cc/h. Medical reconciliation done for nephrotoxic drugs. Urine lites results appreciated. Hypertension: Goal blood pressure less than 140/90 mmHg. Continue with amlodipine. Continue holding losartan hydrochlorothiazide. Hydralazine 10 mg IV every 6 hours as needed for systolic blood pressure more than 160 mmHg. If of lung cancer with metastasis to the liver. Last chemotherapy September 27 Anxiety. Continue home medications GERD. Continue Protonix History of myasthenia gravis: Patient and patient's daughter states she is been taking rivastigmine half tablet every 6 hours. Will restart. Multiple other medical problems as outlined in past medical history Full code Daughter also states that she would like the patient to be transferred to [facility]. I have called [facility] and have been told that at present no beds are available and to call back tomorrow to confirm the bed status. Same has been informed to patient's daughter. 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
[2019-10-17] MEDS: pantoprazole 40 MG in sodium chloride 0.9% (plus) 100 ML 20 MG IV (13:37)
--- NOTE | 2019-10-17 15:03 | PC.NURSE ---
Daughter, Yesenia Brizuela, updated of patient's transfer to ICU per pt request. [phone]
[2019-10-17] MEDS: pyridostigmine 60 mg Tablet 30 MG PO ×2 (16:14→20:38)
[2019-10-17] MEDS: vancomycin 750 MG in sodium chloride 0.9% 250 ML 250 MG IV (16:22)
--- NOTE | 2019-10-17 17:12 | PC.NURSE ---
1700 COVID POSITIVE Nurse notified by charge nurse while I was in pt room (Isolation) that patient did test positive for COVID 19. Patient was already isolated and suspected. Nurse to stay in isolation room with patient until shift change.
[2019-10-17] MEDS: pantoprazole 40 mg SDV 80 MG IVP (18:20)
[2019-10-17] MEDS: pramipexole 0.25 mg Tablet PO (20:38)
[2019-10-17] MEDS: sodium chloride 0.9% 1,000 ML 50 ML IV (20:40)
--- NOTE | 2019-10-17 20:51 | P.TS_ITS ---
Transfer Summary Providers Date of Admission: 10/16/19 00:00 Date of Discharge: 10/18/19 Attending Provider at Admission: Andrzej Vidales MD Attending Provider at Transfer: Charles Chiang MD Consults: Surgery: Dr. Nishant Bianchi Primary Care Provider: Montserrat Vidales MD Anticipated Date of Transfer: Anticipated date of transfer: 10/18/19 Receiving Facility & Provider: Receiving Provider: [Dr. Avery] Receiving facility: [[facility]] Diagnoses at Discharge Discharge Diagnosis (1) Acute respiratory failure with hypoxia: Status: Acute (2) Pulmonary embolism: Status: Acute Qualifiers: Acute cor pulmonale presence: unspecified Chronicity: unspecified Pulmonary embolism type: unspecified Qualified Code(s): I26.99 - Other pulmonary embolism without acute cor pulmonale (3) Pneumonia: Status: Acute Qualifiers: Laterality: unspecified laterality Lung location: unspecified part of lung Pneumonia type: due to unspecified organism Qualified Code(s): J18.9 - Pneumonia, unspecified organism (4) COVID-19 virus test result unknown: Status: Acute (5) Anemia: Status: Acute (6) Hypokalemia: Status: Acute (7) Hypomagnesemia: Status: Acute (8) Acute kidney injury superimposed on chronic kidney disease: Status: Acute (9) Hypertension: Status: Acute Reason for Visit Reason for Visit: sob covid+ Hospital Course Discharge Summary: Rebecca Vega is a 84 year old female that presents to the emergency department with increasing weakness, shortness of breath, cough which is productive of sputum, and low-grade temperatures. Apparently the symptoms have been worsening over the last 4 to 5 days. She also had symptoms around October 01. At that time her daughter who lives in the household tested positive for COVID. Patient herself and refused any testing. She had improved initially, until the last 4 to 5 days. She has had some nausea. She has had no diarrhea or vomiting. She has underlying lung cancer with metastasis to the liver. Her last chemotherapy was on September 13. Her oncologist is Dr. Orta at [facility]. Patient's rapid COVID was negative at the start. CTA chest was concerning for pulmonary embolism infiltrates concerning for COVID. Patient was started on the treatment with anticoagulation, broad-spectrum antibiotics, IV steroids and inhalation while COVID-19 PCR was awaited. Patient maintained saturation on 2 L nasal cannula. Patient's hemoglobin trended down from 9-7.5. It is thought that patient's hemoglobin falling down could be because of GI loss versus bone marrow suppression from recent chemotherapy on September 27 versus immunosuppression from COVID-19 pneumonia. Patient received 2 units of PRBC transfusion. Her anticoagulation was changed to heparin. Stool for occult blood came back negative. Plan was to monitor hemoglobin after transfusion while patient being on heparin drip. And if the hemoglobin dropped at that point to stop the heparin drip and take patient for EGD and colonoscopy after preparation. Patient's COVID-19 PCR results came back positive so she was started on 1st dose of antiviral treatment with Remdesevir and moved to viral ICU. During hospitalization patient NIF was checked multiple times and remained stable and in acceptable limits. Patient family requested for patient to be transferred to [facility] as patient's primary care provider, oncologist and physician for myasthenia gravis are all at [facility]. Patient's care was discussed with health and safety tech at [facility] and they accepted her care. Patient is being transferred in hemodynamically stable condition for further care. Physical Exam Narrative: EXAM NARRATIVE: General: No acute distress, AO x3 HEENT: PERRLA, pupils bilaterally equal and reactive Chest: Normal vesicular breath sounds, no added sounds, equal good air entry bilaterally CVS: S1-S2 regular, no murmurs, no tachycardia, no gallops, no rubs Abdomen: Soft, nontender, no organomegaly, bowel sounds present Neuro: No focal deficits, no facial deformity, AO x3, power 5/5 in all limbs TS Data Data Completed and Pending: Completed Studies During Hospitalization Category Date Time Status CT angio chest PE protcl [id number] Urge nt Cat Scan 10/15/19 22:09 Completed XR chest 1V [place]en ble [id number] Stat Exams 10/15/19 19:37 Completed CV echo complete* [id number] Routine Ultrasound 10/16/19 01:39 Completed Pending at discharge Category Date Time Status Blood Culture Sta t Lab 10/15/19 20:26 Results C Reactive Protei n AM LABS Lab 10/18/19 04:00 Ordered C Reactive Protei n AM LABS Lab 10/19/19 04:00 Ordered C Reactive Protei n AM LABS Lab 10/20/19 04:00 Ordered Complete Blood Co unt w/Auto AM LABS Lab 10/18/19 04:00 Ordered Complete Blood Co unt w/Auto AM LABS Lab 10/19/19 04:00 Ordered Comprehensive Met abolic Panel AM LA BS Lab 10/18/19 04:00 Ordered Comprehensive Met abolic Panel AM LA BS Lab 10/19/19 04:00 Ordered Coronavirus Lab T est PTC Routine Lab 10/15/19 22:08 Received Creatine Phosphok inase AM LABS Lab 10/18/19 04:00 Ordered Ferritin AM LABS Lab 10/18/19 04:00 Ordered Ferritin AM LABS Lab 10/19/19 04:00 Ordered Ferritin AM LABS Lab 10/20/19 04:00 Ordered Fibrinogen AM LAB S Lab 10/18/19 04:00 Ordered Fibrinogen AM LAB S Lab 10/19/19 04:00 Ordered Fibrinogen AM LAB S Lab 10/20/19 04:00 Ordered Hemoglobin and He matocrit Q8H Lab 10/17/19 21:00 Ordered Hemoglobin and He matocrit Q8H Lab 10/18/19 05:00 Ordered Hemoglobin and He matocrit Q8H Lab 10/18/19 13:00 Ordered Hemoglobin and He matocrit Q8H Lab 10/18/19 21:00 Ordered Lactate Dehydroge nase AM LABS Lab 10/18/19 04:00 Ordered Lactate Dehydroge nase AM LABS Lab 10/19/19 04:00 Ordered Lactate Dehydroge nase AM LABS Lab 10/20/19 04:00 Ordered Magnesium AM LABS Lab 10/18/19 04:00 Ordered NT Pro B Type Cate riuretic Pept AM L ABS Lab 10/18/19 04:00 Ordered Platelet Count Q2 D Lab 10/19/19 04:00 Ordered Platelet Count Q2 D Lab 10/21/19 04:00 Ordered Procalcitonin AM LABS Lab 10/18/19 04:00 Ordered Sputum Culture an d Gram Stain Routi ne Lab 10/16/19 02:52 Results Urine Random Lyte s Routine Lab 10/16/19 21:48 Ordered Labs from last 24 hours 10/17/19 10/17/19 10/17/19 08:40 05:47 05:47 WBC RBC Hgb Hct MCV MCH MCHC RDW Plt Count MPV Neut % (Auto) Lymph % (Auto) [place] % (Auto) Eos % (Auto) Baso % (Auto) Neut # (Auto) Lymph # (Auto) [place] # (Auto) Eos # (Auto) Baso # (Auto) Nucleated RBC % (a uto) Nucleated RBCs # Fibrinogen 537 H Sodium Potassium Chloride Carbon Dioxide Anion Gap BUN Creatinine GFR Calculation Glucose Calculated Osmolal ity Calcium Magnesium Ferritin 971 H Lactate Dehydrogen ase 283 H Creatine Kinase C-Reactive Protein NT-Pro-B Natriuret Pep 1361 H Procalcitonin 0.20 Ur Eosinophil Smea r Urine Eosinophils Ur Random Microalb umin Ur Random Sodium Ur Random Chloride Urine Creatinine Microalb/Creat Rat io Blood Type A Positive Rho(D) Type Positive Antibody Screen Negative Crossmatch See Detail 10/17/19 10/17/19 10/17/19 05:47 05:47 05:47 WBC 2.1 L RBC 2.22 L Hgb 7.5 L Hct 23.3 L MCV 105.0 H MCH 33.8 MCHC 32.2 RDW 14.7 Plt Count 282 MPV 9.1 Neut % (Auto) 89.5 Lymph % (Auto) 5.3 [place] % (Auto) 3.3 Eos % (Auto) 0.0 Baso % (Auto) 0.0 Neut # (Auto) 1.87 Lymph # (Auto) 0.1 L [place] # (Auto) 0.1 L Eos # (Auto) 0.0 Baso # (Auto) 0.0 Nucleated RBC % (a uto) 0 Nucleated RBCs # 0.0 Fibrinogen Sodium 139 Potassium 3.9 Chloride 107 Carbon Dioxide 20 L Anion Gap 15.9 BUN 19 Creatinine 1.0 H GFR Calculation Not Reportable Glucose 168 H Calculated Osmolal ity 288 Calcium 7.8 L Magnesium 1.4 L Ferritin Lactate Dehydrogen ase Creatine Kinase 56 C-Reactive Protein 70.4 H NT-Pro-B Natriuret Pep Procalcitonin Ur Eosinophil Smea r Urine Eosinophils Ur Random Microalb umin Ur Random Sodium Ur Random Chloride Urine Creatinine Microalb/Creat Rat io Blood Type Rho(D) Type Antibody Screen Crossmatch 10/16/19 10/16/19 19:05 19:05 WBC RBC Hgb Hct MCV MCH MCHC RDW Plt Count MPV Neut % (Auto) Lymph % (Auto) [place] % (Auto) Eos % (Auto) Baso % (Auto) Neut # (Auto) Lymph # (Auto) [place] # (Auto) Eos # (Auto) Baso # (Auto) Nucleated RBC % (a uto) Nucleated RBCs # Fibrinogen Sodium Potassium Chloride Carbon Dioxide Anion Gap BUN Creatinine GFR Calculation Glucose Calculated Osmolal ity Calcium Magnesium Ferritin Lactate Dehydrogen ase Creatine Kinase C-Reactive Protein NT-Pro-B Natriuret Pep Procalcitonin Ur Eosinophil Smea r 0 Urine Eosinophils No eosinophils se en Ur Random Microalb umin 1 Ur Random Sodium Cancelled Ur Random Chloride Cancelled Urine Creatinine 4 L Microalb/Creat Rat io 250 H Blood Type Rho(D) Type Antibody Screen Crossmatch Vitals: Last Vital Signs Temp 97.8 F 10/17/19 20:44 Pulse 92 10/17/19 20:44 Resp 20 H 10/17/19 20:44 BP 144/83 10/17/19 20:44 Pulse Ox 94 10/17/19 20:44 TS Medications Medications Home Medications alprazolam 0.25 mg PO BID 10/15/19 [History Confirmed 10/15/19] citalopram 10 mg PO DAILY 10/15/19 [History Confirmed 10/15/19] hydrochlorothiazide 25 mg PO BEDTIME 10/15/19 [History Confirmed 10/15/19] hydrocodone-acetaminophen 1 tab PO Q4H PRN 10/15/19 [History Confirmed 10/15/19] losartan 100 mg PO DAILY 10/15/19 [History Confirmed 10/15/19] pantoprazole 40 mg PO BID 10/15/19 [History Confirmed 10/15/19] pramipexole 0.25 mg PO BEDTIME 10/15/19 [History Confirmed 10/15/19] pyridostigmine bromide See Rx Instructions .ROUTE .COMPLEX 10/15/19 [History Confirmed 10/15/19] Active Medications Acetaminophen (Tylenol) 650 mg PO Q6H PRN PRN Reason: Mild/Mod Pain Or Temp >/= 101 Hydrocodone Bitart/Acetaminophen (Lynch 5-325 Mg) 1 tab PO Q4H PRN PRN Reason: Pain Last Admin: 10/16/19 18:45 Dose: 1 tab Documented by: Albuterol/Ipratropium (Combivent Respimat) 1 puff INHALATION QID.RESPIRATORY PRN PRN Reason: COUGH Alprazolam (Xanax) 0.25 mg PO BID ALEXI Last Admin: 10/17/19 18:20 Dose: 0.25 mg Documented by: Alprazolam (Xanax) 0.25 mg PO DAILY PRN PRN Reason: ANXIETY Last Admin: 10/17/19 13:34 Dose: 0.25 mg Documented by: Amlodipine Besylate (Norvasc) 10 mg PO DAILY [facility] Last Admin: 10/17/19 09:01 Dose: 10 mg Documented by: Ascorbic Acid (Vitamin C) 500 mg PO BID [facility] Last Admin: 10/17/19 18:20 Dose: 500 mg Documented by: Benzonatate (Tessalon Pearls) 100 mg PO TID [facility] Last Admin: 10/17/19 20:38 Dose: 100 mg Documented by: Citalopram Hydrobromide (Celexa) 10 mg PO DAILY [facility] Last Admin: 10/17/19 09:03 Dose: 10 mg Documented by: Dexamethasone (Decadron) 6 mg IVP DAILY [facility] Last Admin: 10/17/19 09:02 Dose: 6 mg Documented by: Ferrous Gluconate (Ferrous Gluconate) 324 mg PO BIDWM [facility] Last Admin: 10/17/19 18:20 Dose: 324 mg Documented by: Heparin Sodium (Beef Lung) (Heparin) 0 unit IV PRN PRN; Protocol PRN Reason: Heparin weight-base protocol Hydralazine HCl (Apresoline) 10 mg IVP Q4H PRN PRN Reason: Systolic blood pressure more than 160 mmHg Last Admin: 10/16/19 17:44 Dose: 10 mg Documented by: Sodium Chloride (Sodium Chloride 0.9%) 1,000 mls @ 50 mls/hr IV .Q20H [facility] Last Admin: 10/17/19 20:40 Dose: 50 mls/hr Documented by: Cefepime HCl 2,000 mg/ Sodium (Chloride) 50 mls @ 100 mls/hr IV Q12H [facility]; Protocol Last Infusion: 10/17/19 16:22 Dose: Infused Documented by: Vancomycin HCl 750 mg/ Sodium (Chloride) 250 mls @ 250 mls/hr IV Q24H [facility]; Protocol Last Infusion: 10/17/19 17:37 Dose: Infused Documented by: remdesivir (EUA) 100 mg/ (Sodium Chloride) 100 mls @ 100 mls/hr IV Q24H [facility] Stop: 10/21/19 17:44 Heparin Sodium/Sodium Chloride (Heparin Drip) 25,000 unit in 500 mls @ 0 mls/hr IV .Q0M ALEXI; Protocol Ondansetron HCl (Zofran) 4 mg IVP Q6H PRN PRN Reason: vomiting, or N/V if npo Last Admin: 10/16/19 17:11 Dose: 4 mg Documented by: Pantoprazole Sodium (Protonix) 80 mg IVP Q12H [facility] Last Admin: 10/17/19 18:20 Dose: 80 mg Documented by: Pramipexole Dihydrochloride (Mirapex) 0.25 mg PO BEDTIME [facility] Last Admin: 10/17/19 20:38 Dose: 0.25 mg Documented by: Pyridostigmine [place] (Mestinon) 30 mg PO QID [facility] Last Admin: 10/17/19 20:38 Dose: 30 mg Documented by: Fluticasone/Salmeterol (Advair Diskus 250-50) 1 puff INHALATION BID.RESPIRATORY ALEXI Last Admin: 10/17/19 20:39 Dose: 1 diskus Documented by: Tiotropium [place] (Spiriva) 18 mcg INHALATION DAILY.RESPIRATORY ALEXI Zinc Gluconate (Zinc Gluconate) 50 mg PO DAILY [facility] Last Admin: 10/17/19 09:03 Dose: 50 mg Documented by: Discharge Plan Discharge Patient Disposition: Xfer Other Condition: Stable Prescriptions: No Action citalopram 10 mg tablet 10 mg PO DAILY RF: 0 hydrocodone-acetaminophen 5-325 mg tablet 1 tab PO Q4H PRN (Reason: Pain) RF: 0 alprazolam 0.25 mg tablet 0.25 mg PO BID RF: 0 pantoprazole 40 mg tablet,delayed release (DR/EC) 40 mg PO BID RF: 0 pyridostigmine bromide 60 mg tablet See Rx Instructions .ROUTE .COMPLEX RF: 0 pramipexole 0.25 mg tablet 0.25 mg PO BEDTIME RF: 0 hydrochlorothiazide 25 mg tablet 25 mg PO BEDTIME RF: 0 losartan 100 mg tablet 100 mg PO DAILY RF: 0 Discharge Orders: Transfer Out of Facility (Order); Ordered 10/17/19 Ordered By: Charles Chiang Referrals: Montserrat Vidales MD [Primary Care Provider] - Discharge Date/Time: 10/18/19 01:17 Transfer Attestations Time Spent in Transfer Care*: critical care time Critical Care Time (min): 80 Status at Transfer: Cognitive status at transfer: cognitively intact , Behavioral status at transfer: cooperative , Functional status at transfer: other assisted ambulation Overall status at transfer: patient is not back to baseline Quality Metrics Clinical Quality Measures: During this hospital stay, did patient experience: VTE Contraindication to Overlap Therapy: Overlap therapy prescribed VTE Discharge Education: Education about anticoagulant therapy/Care Notes given Contraindication to Pharm VTE Prophylaxis: VTE prophylaxis given and None Coding Level of Care Code Acute Acute Dialysis Nurse for [facility] Fwmeenakshi Diagnoses Acute respiratory failure with hypoxia J96.01 Pulmonary embolism I26.99 Acute cor pulmonale presence: unspecified Chronicity: unspecified Pulmonary embolism type: unspecified Pneumonia J18.9 Laterality: unspecified laterality Lung location: unspecified part of lung Pneumonia type: due to unspecified organism COVID-19 virus test result unknown Anemia D64.9 Hypokalemia E87.6 Hypomagnesemia E83.42 Acute kidney injury superimposed on chronic kidney disease N17.9; N18.9 Hypertension I10
[2019-10-17] MEDS: HYDROcodone-acetaminophen 5-325 mg Tablet 1 TAB PO (21:24)
[2019-10-17] MEDS: heparin 5,000 unit/mL INJ 1 mL IV (23:29)
[2019-10-17 23:45] LABS: Hematocrit 30.1 % (37.0-47.0); Hemoglobin 10.2 g/dL (11.5-15.3)
[2019-10-17 23:48] LABS: Partial Thromboplastin Time 33.5 SECONDS (23.9-36.7)
[2019-10-18] VITALS: BP 145/91; PULSE 86; RESP 22; O2SAT 91
[2019-10-18 01:00] VITALS: BP 176/83
--- NOTE | 2019-10-18 01:05 | PC.NURSE ---
Patient toileted and assisted to pivot transfer to ambulance [facility]. Patient alert and oriented. Discharged with all belongings given to EMS crew and sent with patient. Heparin drip running with pump locked at 20 mL/hr pump sent with EMS. Left chest port patent with NS dripping free flow at this time. Family, Clinical Coordinator and recieving hospital notified of departure.
[2019-10-18 01:13] VITALS: BP 176/83; PULSE 103; RESP 20; TEMP 36.8; O2SAT 95
[2019-10-19 06:26] LABS: Coronavirus Lab Test PTC Positive
== END 2019-10-18 01:17 | disposition short-term general hospital (02) | DRG 177 ==
LOC: ER 23:49 → MEDSURG 10-16 01:36 → ICU 10-17 12:46
PROVIDERS: Admitting Provider Internal Medicine; Emergency Provider Emergency Medicine; PCP Family Medicine; Visit Provider Student in an Organized Health Care Education/Training Program
DX: U07.1 COVID-19 (principal); J12.89 Other viral pneumonia; J96.01 Acute respiratory failure with hypoxia; I26.99 Other pulmonary embolism without acute cor pulmonale; C34.90 Malignant neoplasm of unspecified part of unspecified bronchus or lung; C78.7 Secondary malignant neoplasm of liver and intrahepatic bile duct; N17.9 Acute kidney failure, unspecified; Z79.899 Other long term (current) drug therapy; Z86.718 Personal history of other venous thrombosis and embolism; F41.9 Anxiety disorder, unspecified; I12.9 Hypertensive chronic kidney disease with stage 1 through stage 4 chronic kidney disease, or unspecified chronic kidney disease; N18.9 Chronic kidney disease, unspecified; K21.9 Gastro-esophageal reflux disease without esophagitis; Z85.41 Personal history of malignant neoplasm of cervix uteri; G70.00 Myasthenia gravis without (acute) exacerbation; D50.9 Iron deficiency anemia, unspecified; E87.6 Hypokalemia; E83.42 Hypomagnesemia; E86.0 Dehydration; R19.5 Other fecal abnormalities; Z79.891 Long term (current) use of opiate analgesic
CPT/HCPCS: 12345; 36415; 36430; 36600; 71045; 71275; 80048; 80051; 80053; 81001; 82044; 82274; 82550; 82570; 82728; 82810; 83540; 83550; 83605; 83615; 83735; 83880; 83986; 84145; 84443; 84484; 85014; 85018; 85025; 85378; 85384; 85610; 85730; 85999; 86140; 86850; 86900; 86920; 87040; 87070; 87205; 87426; 87493; 87635; 87641; 93005; 93306; 94640; 96372; 96375; 99284; C9113; J0360; J0692; J0696; J1100; J1644; J1650; J2405; J3370; J3535; J7030; J7050; P9016; Q9967

== ENCOUNTER 2020-12-03 19:56 | Emergency (ER) | payer MEDICARE, OTHER, SELFPAY ==
[2020-12-03 20:07] VITALS: BP 139/60; PULSE 116; RESP 20; TEMP 39.4; O2SAT 94; BMI 26.5
--- NOTE | 2020-12-03 21:34 | XRR_ITS ---
PROCEDURE INFORMATION: Exam: XR Chest Exam date and time: 12/03/2020 9:34 PM Age: 85 years old Clinical indication: Fever TECHNIQUE: Imaging protocol: XR of the chest. Views: 1 view. COMPARISON: CR XR chest 1V portable [id number] 10/15/2019 7:42 PM FINDINGS: Tubes, catheters and devices: Infusion port noted. Lungs: No acute pulmonary infiltrate noted. Pleural spaces: No pleural effusion. No pneumothorax. Heart/Mediastinum: Cardiomegaly is present. Diaphragm: Elevated right hemidiaphragm. Bones/joints: Unremarkable. XR/XR chest 1V portable [id number] IMPRESSION: 1. Cardiomegaly is present. 2. No acute pulmonary infiltrate noted. 3. No new abnormality demonstrated, when compared to the prior study. Radiation Dose CTDIVOL = (mGy): DLP = (mGy-cm)
--- NOTE | 2020-12-03 21:34 | CTR_ITS ---
PROCEDURE INFORMATION: Exam: CT Abdomen And Pelvis With Contrast Exam date and time: 12/03/2020 9:34 PM Age: 85 years old Clinical indication: Prior surgery; Surgery date: 6+ months; Surgery type: Gb; Patient HX: C/O fever w HX of lung CA and mets to liver; Additional info: Fever, HX of liver infection TECHNIQUE: Imaging protocol: Computed tomography of the abdomen and pelvis with contrast. Radiation optimization: All CT scans at this facility use at least one of these dose optimization techniques: automated exposure control; mA and/or kV adjustment per patient size (includes targeted exams where dose is matched to clinical indication); or iterative reconstruction. Contrast material: OMNI 300; Contrast volume: 95 ml; Contrast route: INTRAVENOUS (IV); COMPARISON: CT Abdomen/Pelvis Renal [id number] 03/09/2017 7:59 AM RADIATION DOSE METRICS: Total DLP (mGy-cm): 1320.15 FINDINGS: Tubes, catheters and devices: Biliary stent is demonstrated. Lungs: Punctate, less than 5 mm calcified granulomas are noted at the lung bases. Liver: Multiple low-density liver masses are identified, measuring up to 5 cm in diameter, consistent with hepatic metastases. Gallbladder and bile ducts: The gallbladder is surgically absent. No biliary dilatation. Pancreas: Diffuse atrophy of the pancreas. No acute pancreatic abnormality. Spleen: The spleen is normal in size and appearance. Adrenal glands: The adrenal glands appear within normal limits. Kidneys and ureters: Bilateral simple appearing renal cysts measuring up to 5.5 cm. No solid renal mass. No calculus or hydronephrosis. The bilateral ureters are unremarkable in appearance. Stomach and bowel: No acute gastric abnormality demonstrated. The small bowel is unremarkable as demonstrated. Diverticulosis of the colon. No evidence of acute diverticulitis. Appendix: No evidence of appendicitis. Intraperitoneal space: No free air. No significant fluid collection. Vasculature: Atherosclerosis of the aorta. No abdominal aortic aneurysm. Lymph nodes: No pathologically enlarged lymph nodes. Urinary bladder: Urinary bladder is only partially distended. The bladder wall appears thickened, and there is mild stranding of the adjacent fat. Reproductive: Unremarkable as visualized. Bones/joints: Degenerative spine changes are noted. Soft tissues: Unremarkable. CT/CT abdomen pelvis w con* [id number] IMPRESSION: 1. Urinary bladder is only partially distended. The bladder wall appears thickened, and there is mild stranding of the adjacent fat. The possibility of nonspecific cystitis is raised. 2. Diverticulosis of the colon. No evidence of acute diverticulitis. 3. Bilateral simple appearing renal cysts measuring up to 5.5 cm. No solid renal mass. No calculus or hydronephrosis. The bilateral ureters are unremarkable in appearance. 4. Findings of old granulomatous disease are identified. COMMENTS: Consistent with the [place] [employer]'s Incidental Findings Committee white paper (J Am Jett Radiol 2018): Any incidental renal lesion less than 1 cm or classified as too small to characterize, or any incidental cystic renal lesion characterized as simple-appearing, is likely benign. No follow-up imaging is recommended for these lesions per consensus recommendations based on imaging criteria. Radiation Dose CTDIVOL = (mGy): DLP = 1320.15 (mGy-cm)
--- NOTE | 2020-12-03 21:37 | ECG_ITS ---
[facility] Test Date: 2020-12-03 Pat Name: Rebecca Vega Department: Room: Gender: Female [employer] Maintainer: : [id number] Requested By: Sean Angeles Order Number: [id number] Carlos MD: Jarad Olson M.D. Measurements Intervals Walsh Rate: 99 P: 20 WV: 160 QRS: -16 QRSD: 94 T: 155 QT: 379 QTc: 488 Interpretive Statements SINUS RHYTHM WITH OCCASIONAL SUPRAVENTRICULAR PREMATURE COMPLEXES LEFT VENTRICULAR HYPERTROPHY AND ST-T CHANGE [VOLTAGE CRITERIA PLUS ST/T ABNORMALITY] INFERIOR MYOCARDIAL INFARCTION , PROBABLY OLD [40+ ms Q WAVE AND/OR ST/T ABNORMALITY IN II/aVF] Compared to ECG 10/16/2019 07:51:57 Left ventricular hypertrophy now present ST (T wave) deviation now present Myocardial infarct finding now present Electronically Signed On 12-04-2020 0:29:10 CDT by Jarad Olson M.D. [id number]
--- NOTE | 2020-12-03 21:39 | W.ED.FEVER ---
HPI - Fever General: Chief Complaint: Fever Stated Complaint: fever at home Time Seen by Provider: 12/03/20 21:25 History of Present Illness: HPI Narrative: 85-year-old female with a history of metastatic lung cancer. She also has a history of recent hospitalization in outside facility for a liver infection, possibly abscess. She presents with sudden onset of fever. She felt well yesterday, and earlier today, but had a spike of a temp to 105 Fahrenheit at home. She took 1 g of Tylenol there. Her temperature was 102.9 on arrival here. She was confused and generally weak at home. She appears somewhat better mental status jennings here. She did throw up once at home with small amount MD elicited complaint: fever Onset (ago): hour(s) Exacerbating factors: nothing Relieving factors: nothing Associated symptoms: Reports confusion, cough (Minimal), nausea and vomiting (Once); Deny chest pain, diarrhea, myalgias, nasal congestion, night sweats, rash, rhinorrhea, short of breath or sore throat Review of Systems Const: Denies: fever(s) or night sweats ENMT: Denies: nasal congestion Card: Denies: chest pain, palpitations or edema Resp: Reports: non-productive cough (Minimal); Denies: dyspnea or productive cough GI: Reports: nausea and vomiting (Once); Denies: diarrhea Neuro: Reports: confusion PFSH ED PFSH: Medical History (Updated 12/04/20 @ 02:06 by Sean Rodríguez DO) Anxiety Chronic kidney disease, stage II (mild) DVT (deep venous thrombosis) From description this is upper extremity or subclavian. 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 Myasthenia gravis Surgical History (Updated 10/15/19 @ 23:29 by Andrzej Vidales MD) History of pneumonectomy Partial, on right Hx of cholecystectomy Family History (Updated 10/15/19 @ 23:29 by Andrzej Vidales MD) Other Cancer Social History (Updated 10/15/19 @ 23:30 by Andrzej Vidales MD) Smoking and tobacco status: never smoked Alcohol intake: never Physical Exam Const: COMMON NORMALS: no acute distress and alert GENERAL APPEARANCE: cooperative, comfortable and frail appearing (Mildly) ORIENTATION/CONSCIOUSNESS: Yes awake, Yes oriented to person and Yes oriented to place HENMT: COMMON NORMALS: normocephalic HEAD & SCALP: normocephalic Eye: COMMON NORMALS: Equal, round and reactive pupils present and EOMs intact bilaterally PUPIL: Yes Equal, round and reactive pupils present Chest: COMMONS NORMALS: normal inspection of the chest Resp: COMMON NORMALS: normal respiratory effort, No use of accessory muscles and clear to auscultation bilaterally AUSCULTATION: clear to auscultation bilaterally Cardio: COMMON NORMALS: regular rhythm RATE: tachycardic (Mild) RHYTHM: regular rhythm GI: COMMON NORMALS: Normal to inspection, nondistended, normoactive bowel sounds present and Soft to palpation PALPATION: Yes Soft to palpation and Yes Tenderness to palpation present (GI) (Mild generalized) Neuro: SENSORIUM/ORIENTATION: Yes alert, Yes oriented to person and Yes oriented to place Course Vital Signs: Vital signs: Vital Signs Temperature 98.7 F 12/03/20 23:16 Pulse Rate 109 H 12/04/20 02:02 Respiratory Rate 15 12/04/20 02:02 Blood Pressure 148/72 12/04/20 02:02 Pulse Oximetry 97 12/04/20 02:02 MDM - Fever MDM Narrative: Medical decision making narrative: 85-year-old female with a fever of unknown origin. She has a history of metastatic cancer, with liver lesions. She was treated recently at an outside facility for a biliary infection. A drain had been placed at that point. She had been doing well until this past evening. Temperature spiked again when Tylenol wore off, but responded to ibuprofen. Potassium is 2.8, and is repleted orally and IV. She is received a 2 L bolus for sepsis. She is also received vancomycin and cefepime. This is after blood cultures rapid Covid is negative. Chest x-ray is negative. CT of the belly showed some bladder wall thickening, but did not otherwise show a definite cause. Initial urine was contaminated, repeat after straight cath shows no definite urinary tract infection. At this point we have to assume this is resurgence of her biliary infection prior. We have no oncology services this weekend as well as no gastroenterology service at all at this facility. She will be transferred to [facility] in [facility], where she was treated prior. At the time of transfer, heart rate 90, sinus. Blood pressure 109/55, saturations 94% on room air with a respiratory rate of 18. She is awake and talking. Lab Data: Labs: Lab Results 12/03/20 12/03/20 12/03/20 22:00 22:00 22:00 WBC 11.8 10^3/uL H 10 ^3/uL (4.0-10.0) RBC 3.41 10^6/uL L 10 ^6/uL (4.1-5.3) Hgb 10.5 g/dL L g/dL (11.5-15.3) Hct 33.2 % L % (37.0-47.0) MCV 97.4 fl fl (81-99) MCH 30.8 pg pg (28.0-34.0) MCHC 31.6 g/dL g/dL (30.0-36.0) RDW 14.6 % % (12.1-15.1) Plt Count 164 10^3/cmm 10^3 /cmm (130-400) MPV 10.5 fL H fL (7.4-10.4) Neut % (Auto) 91.9 % % Lymph % (Auto) 2.0 % % [facility] % (Auto) 5.0 % % Eos % (Auto) 0.0 % % Baso % (Auto) 0.2 % % Neut # (Auto) 10.86 10^3/uL H 1 0^3/uL (1.8-7.7) Lymph # (Auto) 0.2 10^3/uL L 10^ 3/uL (0.8-4.8) [facility] # (Auto) 0.6 10^3/uL 10^3/ uL (0.2-0.9) Eos # (Auto) 0.0 10^3/uL 10^3/ uL (0.0-0.8) Baso # (Auto) 0.0 10^3/uL 10^3/ uL (0.0-0.1) Nucleated RBC % (a uto) 0 % % Nucleated RBCs # 0.0 /100WBC /100W BC Sodium 131 mmol/L L mmol /L (136-145) Potassium 2.8 mmol/L L* mmo l/L (3.5-5.1) Chloride 97 mmol/L L mmol/ L (98-107) Carbon Dioxide 22 mmol/L mmol/L (22-29) Anion Gap 14.8 (5-19) BUN 15 mg/dL mg/dL (8-23) Creatinine 0.8 mg/dL mg/dL (0.5-0.9) GFR Calculation Not Reportable Glucose 108 mg/dL mg/dL (65-115) Calculated Osmolal ity 273 mOsm/kg L mOs m/kg (285-295) Lactate 1.7 mmol/L mmol/L (0.5-2.2) Calcium 7.9 mg/dL L mg/dL (8.5-10.5) Total Bilirubin 0.8 mg/dL mg/dL (0.15-1.2) AST 76 U/L H U/L (0-32) ALT 58 U/L H U/L (0-33) Alkaline Phosphata se 262 IU/L H IU/L (35-105) C-Reactive Protein 165.7 mg/L H mg/L (0.0-4.9) Total Protein 6.1 g/dL L g/dL (6.6-8.7) Albumin 2.8 g/dL L g/dL (3.5-5.2) Globulin 3.3 g/dL g/dL (1.3-4.6) Lipase 31 U/L U/L (13-60) Procalcitonin 3.22 ng/mL H ng/m L (0-0.5) Urine Color Urine Appearance Urine pH Ur Specific Gravit y Urine Protein Urine Glucose (UA) Urine Ketones Urine Blood Urine Nitrate Urine Bilirubin Urine Urobilinogen Ur Leukocyte Edith ase Urine RBC Urine WBC Ur Squamous Epith Cells Amorphous Sediment Urine Bacteria SARS-CoV-2 Ag (Rap id) 12/03/20 12/03/20 12/04/20 22:14 23:35 01:33 WBC RBC Hgb Hct MCV MCH MCHC RDW Plt Count MPV Neut % (Auto) Lymph % (Auto) [facility] % (Auto) Eos % (Auto) Baso % (Auto) Neut # (Auto) Lymph # (Auto) [facility] # (Auto) Eos # (Auto) Baso # (Auto) Nucleated RBC % (a uto) Nucleated RBCs # Sodium Potassium Chloride Carbon Dioxide Anion Gap BUN Creatinine GFR Calculation Glucose Calculated Osmolal ity Lactate Calcium Total Bilirubin AST ALT Alkaline Phosphata se C-Reactive Protein Total Protein Albumin Globulin Lipase Procalcitonin Urine Color Yellow Yellow (Yellow) (Yellow) Urine Appearance Turbid Clear (CLEAR) (CLEAR) Urine pH 5 6.5 (5-7) (5-7) Ur Specific Gravit y 1.015 1.000 L (1.005-1.030) (1.005-1.030) Urine Protein 1+ H Neg (Negative) (Negative) Urine Glucose (UA) Norm Norm (Normal) (Normal) Urine Ketones Negative Negative (Negative) (Negative) Urine Blood 2+ H Neg (Negative) (Negative) Urine Nitrate Negative Negative (Negative) (Negative) Urine Bilirubin 1+ H Neg (Negative) (Negative) Urine Urobilinogen 4 mg/dL H mg/dL Norm mg/dL mg/dL (Negative) (Negative) Ur Leukocyte Edith ase 2+ H Negative (Negative) (Negative) Urine RBC 10-15 /hpf H /hpf 0-4 /hpf H /hpf (0-2) (0-2) Urine WBC 10-15 /hpf H /hpf 0-4 /hpf H /hpf (0-5) (0-5) Ur Squamous Epith Cells >100 /hpf H /hpf 0-4 /hpf H /hpf (0-5) (0-5) Amorphous Sediment Not Reportable Not Reportable Urine Bacteria 2+ /hpf H /hpf Trace /hpf /hpf (NONE) (NONE) SARS-CoV-2 Ag (Rap id) Negative (Negative) Discharge Plan Discharge Patient Disposition: Xfer Short-Term Hosp Clinical Impression: Fever of unknown origin Condition: Fair Referrals: Montserrat Vidales MD [Primary Care Provider] - Coding Level of Care Code ED [employer] And Business [employer] Manager for Chg Fwd Exam Detailed
[2020-12-03 22:15] LABS: Basophils % 0.2 %; Hematocrit 33.2 % (37.0-47.0); Hemoglobin 10.5 g/dL (11.5-15.3); Lymphocytes # 0.2 10^3/uL (0.8-4.8); Mean Corpuscular HGB Conc 31.6 g/dL (30.0-36.0); Mean Corpuscular Hemoglobin 30.8 pg (28.0-34.0); Mean Corpuscular Volume 97.4 fl (81-99); Mean Platelet Volume 10.5 fL (7.4-10.4); Monocytes # 0.6 10^3/uL (0.2-0.9); Neutrophils # 10.86 10^3/uL (1.8-7.7); Neutrophils % 91.9 %; Nucleated Red Blood Cells % 0 %; Platelet Count 164 10^3/cmm (130-400); Red Blood Count 3.41 10^6/uL (4.1-5.3); Red Cell Distribution Width 14.6 % (12.1-15.1); White Blood Count 11.8 10^3/uL (4.0-10.0)
[2020-12-03] MEDS: sodium chloride 0.9% 1,000 ML 999 ML IV (22:19)
[2020-12-03 22:20] VITALS: BP 119/72; PULSE 99; RESP 16; O2SAT 95
[2020-12-03 22:35] LABS: Add Urine Microscopic? YES; Bilirubin Urine 1+ (Negative); Blood Urine 2+ (Negative); Glucose Urine UA Norm (Normal); Ketones Urine Negative (Negative); Leukocyte Esterase Urine 2+ (Negative); Nitrate Urine Negative (Negative); Protein Urine 1+ (Negative); Specific Gravity, Urine 1.015 (1.005-1.030); Urine Appearance Turbid (CLEAR); Urine Color Yellow (Yellow); Urobilinogen Urine 4 mg/dL (Negative); pH Urine 5 (5-7)
[2020-12-03 22:37] LABS: Alanine Aminotransferase 58 U/L (0-33); Albumin Level 2.8 g/dL (3.5-5.2); Alkaline Phosphatase 262 IU/L (35-105); Aspartate Amino Transferase 76 U/L (0-32); Blood Urea Nitrogen 15 mg/dL (8-23); C Reactive Protein 165.7 mg/L (0.0-4.9); Calcium 7.9 mg/dL (8.5-10.5); Carbon Dioxide 22 mmol/L (22-29); Chloride 97 mmol/L (98-107); Globulin 3.3 g/dL (1.3-4.6); Glucose 108 mg/dL (65-115); Lactate (Lactic Acid level) 1.7 mmol/L (0.5-2.2); Lipase 31 U/L (13-60); Osmolality Calculated 273 mOsm/kg (285-295); Sodium 131 mmol/L (136-145); Total Bilirubin 0.8 mg/dL (0.15-1.2); Total Protein 6.1 g/dL (6.6-8.7)
[2020-12-03 22:41] LABS: Add Urine Culture? No; Bacteria Urine 2+ /hpf; Squamous Epithelial Cell Urine >100 /hpf (0-5)
[2020-12-03 22:41] LABS: Procalcitonin 3.22 ng/mL (0-0.5)
[2020-12-03 22:43] LABS: Anion Gap 14.8 (5-19)
[2020-12-03 22:44] LABS: Potassium 2.8 mmol/L (3.5-5.1)
[2020-12-03] MEDS: iohexol 300 mg/mL 100 mL Btl IV (22:53)
[2020-12-03 22:54] LABS: Slide Review Slide Review Perform
[2020-12-03] MEDS: potassium chloride ER 20 mEq Tablet 40 MEQ PO (23:06)
[2020-12-03 23:16] VITALS: BP 130/61; PULSE 99; RESP 16; TEMP 37.1; O2SAT 97
[2020-12-03] MEDS: potassium chloride premix 100 ML 50 MEQ IV (23:16)
--- NOTE | 2020-12-03 23:33 | PC.NURSE ---
First clean catch UA was contaminated. Obtained a strait cath.
[2020-12-04 00:11] LABS: Add Urine Culture? No; Bacteria Urine TRACE /hpf; Bilirubin Urine Neg (Negative); Blood Urine Neg (Negative); Glucose Urine UA Norm (Normal); Ketones Urine Negative (Negative); Leukocyte Esterase Urine Negative (Negative); Nitrate Urine Negative (Negative); Protein Urine Neg (Negative); RBC Urine 0-4 /hpf (0-2); Squamous Epithelial Cell Urine 0-4 /hpf (0-5); Urine Appearance Clear (CLEAR); Urine Color Yellow (Yellow); Urobilinogen Urine Norm (Negative); WBC Urine 0-4 /hpf (0-5); pH Urine 6.5 (5-7)
[2020-12-04] MEDS: cefepime 1,000 MG in sodium chloride 0.9% (plus) 50 ML 100 MG IV (01:43)
[2020-12-04] MEDS: sodium chloride 0.9% 1,000 ML 999 ML IV (01:44)
[2020-12-04 02:00] LABS: SARS Covid-2 Antigen Negative (Negative)
[2020-12-04 02:02] VITALS: BP 148/72; PULSE 109; RESP 15; O2SAT 97
[2020-12-04] MEDS: ibuprofen 200 mg Tablet 400 MG PO (02:41)
[2020-12-04] MEDS: ondansetron 2 mg/ML SDV 2 mL 4 MG IVP (02:51)
[2020-12-04] MEDS: vancomycin 1,000 MG in sodium chloride 0.9% 250 ML 250 MG IV (02:58)
[2020-12-04 05:02] VITALS: BP 134/77; PULSE 109; RESP 15; O2SAT 97
--- NOTE | 2020-12-04 08:36 | PC.NURSE ---
Critical lab of 1 of 3 bottles positive of gram negative rods, Dr Robles notified of findings.
== END 2020-12-04 05:03 | disposition short-term general hospital (02) ==
PROVIDERS: Emergency Provider Emergency Medicine; PCP Family Medicine
DX: R50.9 Fever, unspecified (principal); I10 Essential (primary) hypertension; K21.9 Gastro-esophageal reflux disease without esophagitis; F41.9 Anxiety disorder, unspecified; Z86.718 Personal history of other venous thrombosis and embolism
CPT/HCPCS: 71045; 74177; 80053; 81001; 83605; 83690; 84145; 85025; 86140; 87040; 87077; 87186; 87205; 87426; 93005; 96365; 96366; 96367; 96375; 99291; J0692; J2405; J3370; J3480; J7030; J7050; Q9967

== ENCOUNTER 2021-01-09 14:16 | Outpatient (RCR) | payer MEDICARE, OTHER, SELFPAY ==
[2020-12-21 10:57] VITALS: BP 147/58; PULSE 90; RESP 20; TEMP 36.1; O2SAT 97; BMI 24.7
[2020-12-21] MEDS: ertapenem 1,000 MG in sodium chloride 0.9% (plus) 100 ML 200 MG IV (11:08)
--- NOTE | 2020-12-21 11:42 | PC.NURSE ---
sorbaview dressing used
[2020-12-22] MEDS: ertapenem 1,000 MG in sodium chloride 0.9% (plus) 100 ML 200 MG IV (10:59)
[2020-12-22 11:17] VITALS: BP 146/88; PULSE 85; RESP 20; TEMP 36.4; O2SAT 96
[2020-12-23 10:59] VITALS: BP 163/89; PULSE 95; RESP 20; TEMP 36.2; O2SAT 95
[2020-12-23] MEDS: ertapenem 1,000 MG in sodium chloride 0.9% (plus) 100 ML 200 MG IV (11:13)
[2020-12-24 10:55] VITALS: BP 156/83; PULSE 90; RESP 18; TEMP 36.6; O2SAT 98
[2020-12-24] MEDS: ertapenem 1,000 MG in sodium chloride 0.9% (plus) 100 ML 200 MG IV (11:25)
[2020-12-25] MEDS: ertapenem 1,000 MG in sodium chloride 0.9% (plus) 100 ML 200 MG IV (10:57)
[2020-12-25 11:05] VITALS: BP 162/87; PULSE 100; RESP 18; TEMP 36.7; O2SAT 97
[2020-12-26] MEDS: ertapenem 1,000 MG in sodium chloride 0.9% (plus) 100 ML 200 MG IV (11:10)
[2020-12-26 11:18] LABS: Basophils # 0.1 10^3/uL (0.0-0.1); Basophils % 1.1 %; Eosinophils % 0.5 %; Hematocrit 30.3 % (37.0-47.0); Hemoglobin 9.4 g/dL (11.5-15.3); Lymphocytes # 0.6 10^3/uL (0.8-4.8); Lymphocytes % 9.2 %; Mean Corpuscular Hemoglobin 29.4 pg (28.0-34.0); Mean Corpuscular Volume 94.7 fl (81-99); Mean Platelet Volume 10.2 fL (7.4-10.4); Monocytes # 0.7 10^3/uL (0.2-0.9); Neutrophils # 4.95 10^3/uL (1.8-7.7); Neutrophils % 77.4 %; Nucleated Red Blood Cells % 0 %; Platelet Count 336 10^3/cmm (130-400); Red Cell Distribution Width 14.7 % (12.1-15.1); White Blood Count 6.4 10^3/uL (4.0-10.0)
[2020-12-26 11:30] VITALS: BP 151/73; PULSE 94; RESP 18; TEMP 36.7; O2SAT 97
[2020-12-26 11:50] LABS: Alanine Aminotransferase 23 U/L (0-33); Alkaline Phosphatase 348 IU/L (35-105); Anion Gap 13.1 (5-19); Aspartate Amino Transferase 28 U/L (0-32); Blood Urea Nitrogen 9 mg/dL (8-23); C Reactive Protein 38.4 mg/L (0.0-4.9); Calcium 8.3 mg/dL (8.5-10.5); Carbon Dioxide 26 mmol/L (22-29); Chloride 102 mmol/L (98-107); Creatinine Clr Calc Pharmacy 44.2778; Globulin 3.4 g/dL (1.3-4.6); Glucose 148 mg/dL (65-115); Osmolality Calculated 285 mOsm/kg (285-295); Potassium 4.1 mmol/L (3.5-5.1); Sodium 137 mmol/L (136-145); Total Bilirubin 0.3 mg/dL (0.15-1.2); Total Protein 6.4 g/dL (6.6-8.7)
[2020-12-27 11:00] VITALS: BP 176/85; PULSE 87; RESP 18; TEMP 36.2; O2SAT 95
[2020-12-27] MEDS: ertapenem 1,000 MG in sodium chloride 0.9% (plus) 100 ML 200 MG IV (11:10)
[2020-12-28 10:50] VITALS: BP 168/84; PULSE 84; RESP 18; TEMP 36.1; O2SAT 96
[2020-12-28] MEDS: ertapenem 1,000 MG in sodium chloride 0.9% (plus) 100 ML 200 MG IV (11:04)
[2020-12-29 11:00] VITALS: BP 141/88; PULSE 90; RESP 18; TEMP 36.1; O2SAT 96
[2020-12-29] MEDS: ertapenem 1,000 MG in sodium chloride 0.9% (plus) 100 ML 200 MG IV (11:12)
[2020-12-30 10:50] VITALS: BP 154/73; PULSE 87; RESP 20; TEMP 36.2; O2SAT 97
[2020-12-30] MEDS: ertapenem 1,000 MG in sodium chloride 0.9% (plus) 100 ML 200 MG IV (11:25)
[2020-12-31] MEDS: ertapenem 1,000 MG in sodium chloride 0.9% (plus) 100 ML 200 MG IV (11:00)
[2020-12-31 11:07] VITALS: BP 154/84; PULSE 87; RESP 17; TEMP 36.2; O2SAT 98
[2020-12-31 11:35] VITALS: BP 150/77; PULSE 81; RESP 17; O2SAT 96
[2021-01-01 10:48] VITALS: BP 161/87; PULSE 96; RESP 17; TEMP 36.5; O2SAT 97
[2021-01-01] MEDS: ertapenem 1,000 MG in sodium chloride 0.9% (plus) 100 ML 200 MG IV (11:00)
[2021-01-02] MEDS: ertapenem 1,000 MG in sodium chloride 0.9% (plus) 100 ML 200 MG IV (11:10)
[2021-01-02 11:20] LABS: Basophils # 0.1 10^3/uL (0.0-0.1); Eosinophils % 0.6 %; Hematocrit 30.4 % (37.0-47.0); Hemoglobin 9.6 g/dL (11.5-15.3); Lymphocytes # 0.6 10^3/uL (0.8-4.8); Lymphocytes % 9.1 %; Mean Corpuscular HGB Conc 31.6 g/dL (30.0-36.0); Mean Corpuscular Hemoglobin 29.6 pg (28.0-34.0); Mean Corpuscular Volume 93.8 fl (81-99); Mean Platelet Volume 9.8 fL (7.4-10.4); Monocytes # 0.7 10^3/uL (0.2-0.9); Monocytes % 9.8 %; Neutrophils # 5.41 10^3/uL (1.8-7.7); Neutrophils % 78.9 %; Nucleated Red Blood Cells % 0 %; Platelet Count 353 10^3/cmm (130-400); Red Blood Count 3.24 10^6/uL (4.1-5.3); Red Cell Distribution Width 15.1 % (12.1-15.1); White Blood Count 6.9 10^3/uL (4.0-10.0)
[2021-01-02 11:31] VITALS: BP 171/83; PULSE 94; RESP 18; TEMP 36.5; O2SAT 96
[2021-01-02 11:46] LABS: Alanine Aminotransferase 19 U/L (0-33); Albumin Level 3.1 g/dL (3.5-5.2); Alkaline Phosphatase 359 IU/L (35-105); Anion Gap 13.7 (5-19); Aspartate Amino Transferase 25 U/L (0-32); Blood Urea Nitrogen 9 mg/dL (8-23); C Reactive Protein 49.6 mg/L (0.0-4.9); Carbon Dioxide 26 mmol/L (22-29); Chloride 102 mmol/L (98-107); Creatinine Clr Calc Pharmacy 44.2778; Glucose 112 mg/dL (65-115); Osmolality Calculated 285 mOsm/kg (285-295); Potassium 3.7 mmol/L (3.5-5.1); Sodium 138 mmol/L (136-145); Total Bilirubin 0.4 mg/dL (0.15-1.2); Total Protein 6.1 g/dL (6.6-8.7)
[2021-01-03] MEDS: ertapenem 1,000 MG in sodium chloride 0.9% (plus) 100 ML 200 MG IV (10:47)
[2021-01-03 10:55] VITALS: BP 161/81; PULSE 93; RESP 18; TEMP 36.6; O2SAT 97
[2021-01-04 11:02] VITALS: BP 157/91; PULSE 96; RESP 18; TEMP 36.2; O2SAT 97
[2021-01-04] MEDS: ertapenem 1,000 MG in sodium chloride 0.9% (plus) 100 ML 200 MG IV (11:15)
[2021-01-05] MEDS: ertapenem 1,000 MG in sodium chloride 0.9% (plus) 100 ML 200 MG IV (08:56)
[2021-01-05 09:05] VITALS: BP 142/63; PULSE 86; RESP 18; TEMP 36.6; O2SAT 95
[2021-01-06 11:00] VITALS: BP 136/84; PULSE 108; RESP 20; TEMP 37.1; O2SAT 96
[2021-01-06] MEDS: ertapenem 1,000 MG in sodium chloride 0.9% (plus) 100 ML 200 MG IV (11:20)
[2021-01-09 14:25] VITALS: RESP 18; TEMP 36.1
--- NOTE | 2021-01-09 14:25 | PC.NURSE ---
Orders received to remove PICC line. PICC line removed from right arm. Pressure held for approx 5 min. No bleeding or hematoma noted. Pt educated to report S&S of infection such as redness, swelling, or drainage and to return to the ER for SOB or difficult breathing.
== END 2021-01-10 23:59 | disposition home or self-care (01) ==
LOC: GILAB 14:16
PROVIDERS: PCP Family Medicine; Visit Provider Physician Assistant
DX: C34.90 Malignant neoplasm of unspecified part of unspecified bronchus or lung (principal); C78.7 Secondary malignant neoplasm of liver and intrahepatic bile duct
CPT/HCPCS: 36592; 80053; 85025; 86140; 96365; J1335